=== PATIENT | male | born 1945 | race Caucasian/White ===

== ENCOUNTER → 2018-01-20 | Outpatient (CLI) | payer MEDICARE, OTHER ==
[~2018-01-20] MED LIST: ACHD5005 PO; AMOX500C2 PO; ASCO500C14 PO; ASP325T PO; ASPI-892; BUDE6HFA IH; BUDE90AE2 IH; CALC-732 PO; CARV6.25 PO; CHOL10003 PO; CLOP75TA; COD LIVER OIL; COD500OI3 PO; COLC0.6T53 PO; DEPO TESTOSTERONE IM; E400C PO; FLUT16SP22 NS; GINK60CA13; GUAI100S PO; IRB150T PO; LORA10TA7 PO; METO50TA7; MTF500T PO; MULT-608 PO; OMG1KC; OMG1KC PO; SAW160CA9 PO; SMV20T PO; TADA20TA PO; ULTIMATE FLORA PO; VENL150C PO; VENL150C53 PO; VITA1TAB; VNL75CCR PO; [UNRECOGNIZED DRUG - CODE] PO; [UNRECOGNIZED DRUG - OTHER] PO
== END ==
LOC: CARD 09:21
PROVIDERS: ATTEND Internal Medicine Cardiovascular Disease
DX: I25.10 Atherosclerotic heart disease of native coronary artery without angina pectoris (principal); I65.23 Occlusion and stenosis of bilateral carotid arteries; I10 Essential (primary) hypertension; E78.2 Mixed hyperlipidemia; R06.02 Shortness of breath; R07.89 Other chest pain
CPT/HCPCS: 93306

== ENCOUNTER → 2018-01-22 | Outpatient (CLI) | payer MEDICARE, OTHER ==
[~2018-01-22] VITALS: Ht 177.8 cm; Wt 92.5 kg
[~2018-01-22] MED LIST changes: +CATHETER FLUSH 10 ML SYR IV PRN
[2018-01-22 09:39] VITALS: BP 163/84
--- NOTE | 2018-01-22 17:37 | STRESS TEST ---
DATE OF SERVICE: 01/22/2018 EXERCISE MYOVIEW STRESS TEST REPORT REFERRING PHYSICIAN: Raquel Madrid DO. Baseline heart rate is 70. Baseline blood pressure 146/87. Baseline EKG, sinus rhythm with no ischemic changes. In summary, the patient was injected with 10.84 mCi of technetium-99 Myoview and the resting images were obtained. Then, the patient started exercising with a baseline heart rate, blood pressure and EKG mentioned above. The patient was able to exercise for 6 minutes on standard Aubrey protocol, achieving maximum heart rate of 139, which is 95% of maximum expected heart rate. With peak exercise level, EKG was showing nondiagnostic changes in II, III, aVF, V4 and V5. During recovery, heart rate and blood pressure returned to baseline. EKG returned to baseline. Next, blood pressure at peak was 199/84. The resting and stress images were reviewed and compared in the short axis, horizontal long axis, and vertical long axis views. Review of the images showed diaphragmatic attenuation. There is a fixed defect involving the mid to apical inferior wall, inferolateral and anterolateral wall with mild ischemia. SSS is 17. SDS 3. TID value 1.02. On the gated images, the left ventricle is normal in size with diffuse left ventricular hypokinesia, calculated ejection fraction 36%. CONCLUSION: 1. Fair exercise tolerance, a total of 6 minutes on standard Aubrey protocol, total of 7.1 METS achieving 95% of maximum expected heart rate. 2. Hypertensive response to exercise, returned to baseline during recovery. 3. Nondiagnostic EKG changes with exercise, returned to baseline during recovery. 4. Fixed defect involving the basal to mid inferior wall, the whole inferolateral and anterolateral wall with mild reversibility. 5. Normal left ventricular size with diffuse left ventricular hypokinesia, calculated ejection fraction 36%. Job ID: [id number] DocumentID: [id number] Dictated Date: 01/22/2018 14:15:22 Grape Picker Date: 01/22/2018 17:37:26 Dictated By: ANGIE DOWNEY MD
== END ==
LOC: CARD 07:05
PROVIDERS: ATTEND Internal Medicine Cardiovascular Disease
DX: I25.10 Atherosclerotic heart disease of native coronary artery without angina pectoris (principal); R07.89 Other chest pain; I10 Essential (primary) hypertension; E78.2 Mixed hyperlipidemia; R06.02 Shortness of breath
CPT/HCPCS: 78452; 93017

== ENCOUNTER 2018-02-12 08:46 | Day surgery (SDC) | payer MEDICARE, OTHER ==
[~2018-02-12] VITALS: Ht 175.3 cm; Wt 88.9 kg
[2018-02-12] VITALS (13 sets, daily range): BP systolic 143–174; BP diastolic 68–90
[~2018-02-12 08:46] MED LIST changes: -CATHETER FLUSH 10 ML SYR IV PRN
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
--- OUTSIDE RECORDS SUMMARY | 2018-02-12 08:50 | XMS REPORT ---
Author Author DERRICK NOEL Organization [employer] Address Unknown Phone Unavailable Care Team Providers Care City Superintendent Of Schools Name Role Phone DERRICK NOEL CP Unavailable Allergies No Known Allergies Problems Problem Type Condition Code Onset Dates Condition Status Problem Other specified dermatoses 702.8 Active Problem Polyuria 788.42 Active Problem Unspecified subjective visual disturbance 368.10 Active Problem Gout, unspecified 274.9 Active Problem Chronic airway obstruction, not elsewhere classified 496 Active Problem Simple or unspecified chronic serous otitis media 381.10 Active Problem Pneumonia, organism unspecified 486 Active Problem Dysfunction of Eustachian tube 381.81 Active Problem Acute upper respiratory infections of unspecified site 465.9 Active Problem Head injury, unspecified 959.01 Active Problem Need for prophylactic vaccination and inoculation, Influenza V04.81 Active Problem Acute bronchitis 466.0 Active Problem Wheezing 786.07 Active Problem Cough 786.2 Active Medications No Known Medications Results No Known Results Summary Purpose [employer] Submission
--- OUTSIDE RECORDS SUMMARY | 2018-02-12 08:50 | XMS REPORT ---
Author STANLEY Sierra Organization [employer] Address Unknown Phone Unavailable Care Team Providers Care Extrusion Manager Name Role Phone STANLEY SAUCEDO CP Unavailable Allergies, Adverse Reactions, Alerts Substance Reaction Event Type Levaquin Info Not Available Drug Allergy Problems Problem Type Condition Code Onset Dates Condition Status Assessment Recurrent major depressive disorder, in partial remission F33.41 Active Assessment Type 2 diabetes mellitus without complication, without long-term current use of insulin E11.9 Active Assessment Anxiety F41.9 Active Problem Anxiety F41.9 Active Problem Recurrent major depressive disorder, in partial remission F33.41 Active Problem Type 2 diabetes mellitus without complication, without long-term current use of insulin E11.9 Active Problem Hyperlipidemia, unspecified hyperlipidemia type E78.5 Active Assessment Left leg swelling M79.89 Active Problem Coronary artery disease involving [place] coronary artery of [place] heart without angina pectoris I25.10 Active Problem Essential hypertension I10 Active Assessment Hyperlipidemia, unspecified hyperlipidemia type E78.5 Active Assessment Essential hypertension I10 Active Assessment Abnormal lung sounds R09.89 Active Assessment Coronary artery disease involving [place] coronary artery of [place] heart without angina pectoris I25.10 Active Medications Medication Code System Code Instructions Start Date End Date Status Dosage Carvedilol [facility] 75644065470 6.25 MG Orally 2 times a day-MUST BE SEEN FOR REFILLS TAKE ONE TABLET BY MOUTH TWICE DAILY Effexor XR [facility] 95308287545 150 MG Orally Once a day- MUST BE SEEN FOR REFILLS 1 capsule with food Clindamycin HCl [facility] [address]-63 300 MG Orally every 8 hrs Aug 21, 2016 Aug 26, 2016 1 capsule ProAir HFA [facility] [address]-84 108 (90 Base) MCG/ACT Inhalation every 4 hrs, prn wheezing April 20, 2016 2 puffs as needed Simvastatin [facility] [address]-84 20 mg Orally Once a day- MUST BE SEEN FOR REFILLS TAKE ONE TABLET BY MOUTH DAILY Metformin HCl [facility] 82499977317 500 MG Orally 2 times a day-MUST BE SEEN FOR REFILLS. TAKE ONE TABLET BY MOUTH TWICE DAILY WITH MEALS Avapro [facility] 29956730317 150 MG Orally Once a day- MUST BE SEEN FOR REFILLS TAKE ONE TABLET BY MOUTH DAILY Procedures Procedure Coding System Code Date CHEST X-RAY CPT-4 66661 Aug 21, 2016 [facility] VISIT ESTABLISHED PATIENT CPT-4 G0467 Aug 21, 2016 X-RAY EXAM OF LOWER LEG CPT-4 18266 Aug 21, 2016 Office Visit, Est Pt., Level 4 CPT-4 31536 Aug 21, 2016 Vital Signs Date/Time: Aug 21, 2016 Cardiac Monitoring Heart Rate 72 bpm Weight 209.7 lbs Height 68 in BMI 31.88 Index Blood Pressure Diastolic 76 mmHg Blood Pressure Systolic 138 mmHg Results No Known Results Summary Purpose [employer] Submission
--- OUTSIDE RECORDS SUMMARY | 2018-02-12 08:50 | XMS REPORT ---
Author Author ROGELIO Martin Organization [facility] Address Unknown Care Team Providers Care Printing Equipment Mechanic Name Role Phone taanROGELIO Ashby Unavailable PROBLEMS Type Condition ICD9-CM Code [id number] Code Onset Dates Condition Status SNOMED Code Problem Recurrent major depressive disorder, in partial remission F33.41 Active 59884157 Problem Type 2 diabetes mellitus without complication, without long-term current use of insulin E11.9 Active 676994792 Problem Hyperlipidemia, unspecified hyperlipidemia type E78.5 Active 31109847 Problem Atherosclerosis of [place] coronary artery of [place] heart without angina pectoris I25.10 Active 545397778964960 Problem Exertional shortness of breath R06.02 Active 025567759 Problem Essential hypertension I10 Active 37087738 Problem Coronary artery disease involving [place] coronary artery of [place] heart without angina pectoris I25.10 Active 9349094686543 Problem COPD exacerbation J44.1 Active 640414989 Problem Anxiety F41.9 Active 97263448 ALLERGIES Substance Reaction Event Type Date Status Levaquin Unknown Drug Allergy Dec, Active SOCIAL HISTORY Never Assessed PLAN OF CARE Activity Details Follow Up 1 Week Reason:#27-te and #31-te per VITAL SIGNS Height 68 in 2016-12-18 Blood pressure systolic 89 mmHg 2016-12-18 Blood pressure diastolic 40 mmHg 2016-12-18 MEDICATIONS Medication Instructions Dosage Frequency Start Date End Date Duration Status Vitamin D3 400 UNIT Orally Once a day 2 tablets 24h Active Simvastatin 20 mg 1 tablet in the evening 24h Active Metformin HCl 500 MG Orally Twice a day 1 tablet with meals 12h Active Amoxicillin 500 MG Orally Four times a day 1 capsule 6h Dec, Dec, 7 days Active Loratadine Allergy Relief 10 MG Orally Once a day 1 tablet on the tongue and allow to dissolve 24h Active Zinc 100 MG Orally Once a day 1 tablet 24h Active Coreg 6.25 MG 1 tablet 12h Jan, Active Vitamin C 100 MG Orally Once a day 1 tablet 24h Active Aspirin 162.5 MG Orally Once a day 1 capsule 24h Active Calcium 1 tab Active Avapro 150 MG Orally Once a day 1 tablet 24h Active Effexor Active Magnesium 100 MG Orally Four times a day 1 capsule with food 6h Active RESULTS No Results PROCEDURES Procedure Date Ordered Result Body Site LTD ORAL EVALUATION - PROBLEM FOCUS Dec 18, 2016 INTRAORL-PERIAPICAL 1 FILM 88430 Dec 18, 2016 INTRAORL-PERIAPICAL EA ADD FILM Dec 18, 2016 IMMUNIZATIONS No Known Immunizations MEDICAL (GENERAL) HISTORY [...]
--- OUTSIDE RECORDS SUMMARY | 2018-02-12 08:50 | XMS REPORT ---
Author Author HELADIO CASTRO [facility] Address [address] [place] [address] Care Team Providers Care Air Pollution Control Engineer Name Role Phone HELADIO CASTRO Unavailable PROBLEMS Type Condition ICD9-CM Code [id number] Code Onset Dates Condition Status SNOMED Code Problem Recurrent major depressive disorder, in partial remission F33.41 Active 42211214 Problem Type 2 diabetes mellitus without complication, without long-term current use of insulin E11.9 Active 887893694 Problem Hyperlipidemia, unspecified hyperlipidemia type E78.5 Active 08758110 Problem Atherosclerosis of [place] coronary artery of [place] heart without angina pectoris I25.10 Active 940634524113604 Problem Exertional shortness of breath R06.02 Active 152718656 Problem Essential hypertension I10 Active 47070885 Problem Coronary artery disease involving [place] coronary artery of [place] heart without angina pectoris I25.10 Active 8597921370077 Problem COPD exacerbation J44.1 Active 800931795 Problem Anxiety F41.9 Active 41215943 ALLERGIES Substance Reaction Event Type Date Status Levaquin Unknown Drug Allergy Jan, Active SOCIAL HISTORY Never Assessed PLAN OF CARE Activity Details Follow Up prn Reason: VITAL SIGNS Height 68 in 2017-01-14 Weight 209.0 lbs 2017-01-14 Temperature 97.7 degrees Fahrenheit 2017-01-14 Heart Rate 70 bpm 2017-01-14 Respiratory Rate 24 2017-01-14 Oximetry on room air: 94 % 2017-01-14 BMI 31.77 kg/m2 2017-01-14 Blood pressure systolic 142 mmHg 2017-01-14 Blood pressure diastolic 80 mmHg 2017-01-14 MEDICATIONS Medication Instructions Dosage Frequency Start Date End Date Duration Status Vitamin C 100 MG Orally Once a day 1 tablet 24h Active ProAir HFA 108 (90 Base) MCG/ACT Inhalation every 4 hrs 2 puffs as needed 4h Jan, 5 days Active Magnesium 100 MG Orally Four times a day 1 capsule with food 6h Active Vitamin D3 400 UNIT Orally Once a day 2 tablets 24h Active Benzonatate 200 MG Orally Three times a day 1 capsule 8h Jan, Jan, 5 days Active Metformin HCl 500 MG Orally Twice a day 1 tablet with meals 12h Active Avapro 150 MG Orally Once a day 1 tablet 24h Active Calcium 1 tab Active Simvastatin 20 mg 1 tablet in the evening 24h Active Azithromycin 250 MG Orally Once a day 2 tablets on the first day, then 1 tablet daily for 4 days 24h Jan, Jan, 5 day(s) Active Effexor Active Zinc 100 MG Orally Once a day 1 tablet 24h Active Aspirin 162.5 MG Orally Once a day 1 capsule 24h Active Loratadine Allergy Relief 10 MG Orally Once a day 1 tablet on the tongue and allow to dissolve 24h Active Coreg 6.25 MG 1 tablet 12h Jan, Active RESULTS Name Result Date Reference Range Xray : Chest (IN HOUSE) 2017-01-14 PROCEDURES Procedure Date Ordered Result Body Site ALBUTEROL UNIT DOSE FORM INHALED 2017-01-14 N/A MEASURE BLOOD OXYGEN LEVEL January 14, 2017 ALBUTEROL INHAL UNIT DOSE 1 MG January 14, 2017 CHEST X-RAY January 14, 2017 [facility] VISIT ESTABLISHED PATIENT January 14, 2017 IMMUNIZATIONS No Known Immunizations MEDICAL (GENERAL) [...]
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
--- OUTSIDE RECORDS SUMMARY | 2018-02-12 08:50 | XMS REPORT ---
Author Author REGINO DIAZ [facility] Address [address] [place] [address] Care Team Providers Care Detective Bureau Chief Name Role Phone REGINO DIAZ Unavailable PROBLEMS Type Condition ICD9-CM Code XXP43-NH Code Onset Dates Condition Status SNOMED Code Problem Recurrent major depressive disorder, in partial remission F33.41 Active 69035707 Problem Type 2 diabetes mellitus without complication, without long-term current use of insulin E11.9 Active 876991805 Problem Hyperlipidemia, unspecified hyperlipidemia type E78.5 Active 06231377 Problem Atherosclerosis of [place] coronary artery of [place] heart without angina pectoris I25.10 Active 491755598927371 Problem Exertional shortness of breath R06.02 Active 531494556 Problem Essential hypertension I10 Active 90856019 Problem Coronary artery disease involving [place] coronary artery of [place] heart without angina pectoris I25.10 Active 2030244428820 Problem COPD exacerbation J44.1 Active 393251957 Problem Anxiety F41.9 Active 39689168 ALLERGIES No Information SOCIAL HISTORY Never Assessed PLAN OF CARE VITAL SIGNS MEDICATIONS No Known Medications RESULTS No Results PROCEDURES No Known [...]
--- OUTSIDE RECORDS SUMMARY | 2018-02-12 08:50 | XMS REPORT ---
Author DERRICK Jaquez [facility] eClinicalWorks Address Unknown Phone Unavailable Care Team Providers Care Local Sales Manager Name Role Phone DERRICK NOEL CP Unavailable Allergies, Adverse Reactions, Alerts Substance Reaction Event Type Levaquin Info Not Available Drug Allergy Problems Problem Type Condition Code Onset Dates Condition Status Assessment Essential hypertension I10 Active Assessment Actinic keratosis L57.0 Active Assessment Cutaneous horn L85.8 Active Assessment Encounter for immunization Z23 Active Assessment Hyperlipidemia, unspecified hyperlipidemia type E78.5 Active Problem Anxiety F41.9 Active Problem Recurrent major depressive disorder, in partial remission F33.41 Active Problem Type 2 diabetes mellitus without complication, without long-term current use of insulin E11.9 Active Problem Hyperlipidemia, unspecified hyperlipidemia type E78.5 Active Assessment Fatigue, unspecified type R53.83 Active Problem Coronary artery disease involving [place] coronary artery of [place] heart without angina pectoris I25.10 Active Problem Essential hypertension I10 Active Medications Medication Code System Code Instructions Start Date End Date Status Dosage Carvedilol [facility] 57068826478 6.25 MG TAKE ONE TABLET BY MOUTH TWICE DAILY Avapro [facility] 75496102105 150 MG Orally Once a day [address] [facility] [address]-48 75 MG Orally Twice a day Sep 10, 2016 1 tablet with food Metformin HCl [facility] 50515551189 500 MG Orally Twice a day 1 tablet with meals Simvastatin [facility] [address]-70 20 mg Once a day 1 tablet in the evening Coreg [facility] [address]-03 6.25 MG 2 times a day January 22, 2014 1 tablet Procedures Procedure Coding System Code Date [facility] VISIT ESTABLISHED PATIENT CPT-4 G0467 Sep 10, 2016 Office Visit, Est Pt., Level 3 CPT-4 63807 Sep 10, 2016 CRYOTHERAPY OF SKIN CPT-4 38782 Sep 10, 2016 VENIPUNCT, ROUTINE* CPT-4 98176 Sep 10, 2016 [facility] C[facility]-4 NOBLL Sep 10, 2016 SINGLE IMMUNIZATION ADMIN CPT-4 89942 Sep 10, 2016 FLUZONE HIGH DOSE 65 AND UP 2016 CPT-4 99284 Sep 10, 2016 Vital Signs Date/Time: Sep 10, 2016 Cardiac Monitoring Heart Rate 68 bpm Weight 211 lbs Height 68 in BMI 32.08 Index Blood Pressure Diastolic 80 mmHg Blood Pressure Systolic 140 mmHg Results Name Result Date Reference Range Unit Abnormality Flag CBC ----Lymphs 33 20160910 % ----Neutrophils 54 45850021 % ----Baso (Absolute) 0.0 13457846 0.0-0.2 x10E3/uL ----Hemoglobin 15.0 99871739 12.6-17.7 g/dL ----Eos (Absolute) 0.2 38334554 0.0-0.4 x10E3/uL ----Hematocrit 45.7 58626899 37.5-51.0 % ----Monocytes(Absolute) 0.6 61619669 0.1-0.9 x10E3/uL ----MCV 90 48483110 79-97 fL ----Lymphs (Absolute) 2.2 38861365 0.7-3.1 x10E3/uL ----MCH 29.5 57391771 26.6-33.0 pg ----Neutrophils (Absolute) 3.8 33473974 1.4-7.0 x10E3/uL ----MCHC 32.8 00430481 31.5-35.7 g/dL ----Immature Granulocytes 0 76645924 % ----Basos 1 20160910 % ----RDW 13.8 23387201 12.3-15.4 % ----Immature Grans (Abs) 0.0 09584453 0.0-0.1 x10E3/uL ----WBC 6.9 07284986 3.4-10.8 x10E3/uL ----Platelets 209 31707732 150-379 x10E3/uL ----Eos 3 20160910 % ----RBC 5.08 84497824 4.14-5.80 x10E6/uL ----Monocytes 9 96154529 % LIPID PANEL ----LDL Cholesterol Calc 43 00334239 0-99 mg/dL ----VLDL Cholesterol [place] 28 20160910 5-40 mg/dL ----Cholesterol, Total 107 39686237 100-199 mg/dL ----HDL Cholesterol 36 20160910 >39 mg/dL L ----Triglycerides 142 20160910 0-149 mg/dL ROUTINE VENIPUNCTURE TSH ----TSH 2.340 20160910 0.450-4.500 uIU/mL CMP ----Potassium, Serum 4.7 20160910 3.5-5.2 mmol/L ----Sodium, Serum 143 90512396 136-144 mmol/L ----BUN/Creatinine Ratio 18 20160910 10-22 ----eGFR If Africn Am 105 86371154 >59 mL/min/1.73 ----eGFR If NonAfricn Am 91 00373314 >59 mL/min/1.73 ----Creatinine, Serum 0.77 20160910 0.76-1.27 mg/dL ----BUN 14 20160910 8-27 mg/dL ----Glucose, Serum 104 20160910 65-99 mg/dL H ----AST (SGOT) 22 20160910 0-40 IU/L ----Globulin, Total 2.4 76313015 1.5-4.5 g/dL ----ALT (SGPT) 24 20160910 0-44 IU/L ----A/G Ratio 1.8 20160910 1.1-2.5 ----Bilirubin, Total 0.5 20160910 0.0-1.2 mg/dL ----Alkaline Phosphatase, S 92 20160910 39-117 IU/L ----Carbon Dioxide, Total 25 20160910 18-29 mmol/L ----Calcium, Serum 9.3 20160910 8.6-10.2 mg/dL ----Protein, Total, Serum 6.7 20160910 6.0-8.5 g/dL ----Albumin, Serum 4.3 20160910 3.5-4.8 g/dL ----Chloride, Serum 100 53693141 97-106 mmol/L CRYOTHERAPY OF SKIN Immunizations Vaccine Administration Date FLUZONE HIGH DOSE 65 AND UP 2015Sep 10, 2016 Summary Purpose eClinicalWorks Submission
--- OUTSIDE RECORDS SUMMARY | 2018-02-12 08:50 | XMS REPORT ---
Author Author ROGELIO Martin Organization [facility] Address Unknown Care Team Providers Care Fagot Heater Name Role Phone tanaSymone ROGELIO Unavailable PROBLEMS Type Condition ICD9-CM Code RNR54-WU Code Onset Dates Condition Status SNOMED Code Problem Recurrent major depressive disorder, in partial remission F33.41 Active 79445294 Problem Type 2 diabetes mellitus without complication, without long-term current use of insulin E11.9 Active 122223130 Problem Hyperlipidemia, unspecified hyperlipidemia type E78.5 Active 25295563 Problem Atherosclerosis of [place] coronary artery of [place] heart without angina pectoris I25.10 Active 214306600068426 Problem Exertional shortness of breath R06.02 Active 505146278 Problem Essential hypertension I10 Active 19981101 Problem Coronary artery disease involving [place] coronary artery of [place] heart without angina pectoris I25.10 Active 1364874328868 Problem COPD exacerbation J44.1 Active 114731273 Problem Anxiety F41.9 Active 11348801 ALLERGIES Substance Reaction Event Type Date Status Levaquin Unknown Drug Allergy Dec, Active SOCIAL HISTORY Never Assessed PLAN OF CARE Activity Details Follow Up prn Reason:[place]/hygiene VITAL SIGNS Height 68 in 2017-01-02 Blood pressure systolic 150 mmHg 2017-01-02 Blood pressure diastolic 82 mmHg 2017-01-02 MEDICATIONS Medication Instructions Dosage Frequency Start Date End Date Duration Status Effexor Active Aspirin 162.5 MG Orally Once a day 1 capsule 24h Active Loratadine Allergy Relief 10 MG Orally Once a day 1 tablet on the tongue and allow to dissolve 24h Active Coreg 6.25 MG 1 tablet 12h 14 Jan, 2014 Active Zinc 100 MG Orally Once a day 1 tablet 24h Active Avapro 150 MG Orally Once a day 1 tablet 24h Active Simvastatin 20 mg 1 tablet in the evening 24h Active Vitamin C 100 MG Orally Once a day 1 tablet 24h Active Vitamin D3 400 UNIT Orally Once a day 2 tablets 24h Active Metformin HCl 500 MG Orally Twice a day 1 tablet with meals 12h Active Calcium 1 tab Active Magnesium 100 MG Orally Four times a day 1 capsule with food 6h Active RESULTS No Results PROCEDURES Procedure Date Ordered Result Body Site EXTRAC ERUPTED TOOTH/EXPOSED ROOT Jan 02, 2017 EXTRAC ERUPTED TOOTH/EXPOSED ROOT Jan 02, 2017 IMMUNIZATIONS No Known Immunizations MEDICAL (GENERAL) [...]
--- OUTSIDE RECORDS SUMMARY | 2018-02-12 08:50 | XMS REPORT ---
Author Author DERRICK NOEL Organization e[employer] Address Unknown Phone Unavailable Care Team Providers Care Sales Agent Insurance Name Role Phone DERRICK NOEL CP Unavailable Allergies, Adverse Reactions, Alerts Substance Reaction Event Type Levaquin Info Not Available Drug Allergy Problems Problem Type Condition Code Onset Dates Condition Status Assessment Coughing R05 Active Assessment Dizziness R42 Active Assessment Allergic rhinitis due to pollen J30.1 Active Medications Medication Code System Code Instructions Start Date End Date Status Dosage Simvastatin ND 14943344625 20 MG TAKE [place] [address]-93 6.25 mg 1 tab(s) orally 2 times a day January 22, 2014 take 1 tablet by Oral route 2 times per day Avapro [facility] [address]-87 150 mg January 22, 2014 1 tablet by Oral route 1 time [place] [address]-22 150 MG Orally Once a day Sep 16, 2015 1 capsule with food Loratadine [facility] [place] [address]-71 10 MG Once a day 1 capsule metformin NDC 0 500 mg 1 TAB orally once a day January 22, 2014 1 tablet by Oral route 2 times per day with meals Procedures Procedure Coding System Code Date Office Visit, Est Pt., Level 3 CPT-4 00460 Sep 16, 2015 LAB NOT BILLED BY [facility] CPT-4 NOBLL Sep 16, 2015 [facility] VISIT ESTABLISHED PATIENT CPT-4 G0467 Sep 16, 2015 VENIPUNCT, ROUTINE* CPT-4 22628 Sep 16, 2015 Vital Signs Date/Time: Sep 16, 2015 Temperature 97.0 F Weight 205.3 lbs Height 68 in BMI 31.21 Index Blood Pressure Diastolic 88 mmHg Blood Pressure Systolic 174 mmHg Cardiac Monitoring Heart Rate 68 bpm Results Name Result Date Reference Range Unit Abnormality Flag ROUTINE VENIPUNCTURE Summary Purpose eClinicalWorks Submission
--- OUTSIDE RECORDS SUMMARY | 2018-02-12 08:51 | XMS REPORT ---
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 Active 0205311448703 Problem Atherosclerosis of ani[place] coronary artery of [place] heart without angina pectoris I25.10 Active [id number] Problem Exertional shortness of breath R06.02 Active 681192455 Problem Recurrent major depressive disorder, in partial remission F33.41 Active 37468412 Problem Anxiety F41.9 Active 88311371 Problem Type 2 diabetes mellitus without complication, without long-term current use of insulin E11.9 Active 102367644 Problem Hyperlipidemia, unspecified hyperlipidemia type E78.5 Active 79949176 ALLERGIES No Information ENCOUNTERS Encounter Location Date Diagnosis [place] [address] [id number] [place] [address]- 5629 Feb, [place] [address] [address] Oct, Essential hypertension I10 ; Type 2 diabetes mellitus without complication, without long-term current use of insulin E11.9 ; Coronary artery disease involving [place]iak coronary artery of [place] heart without angina pectoris I25.10 ; Hyperlipidemia, unspecified hyperlipidemia type E78.5 and Anxiety F41.9 [place] [address] [address] 30 Sep, 2017 Skin lesion of left arm L98.9 ; Skin lesion of left ear L98.9 and Encounter for immunization Z23 [place] [address] [address]- [address] Sep, [place] [address] [id number] [place] [address] 34602- 0323 Aug, Left hip pain M25.552 ; Acute pain of left knee M25.562 and Lentigo L81.4 [facility] [id number] [place] [address]32 -0297 08 Jul, 2017 Wheezing R06.2 and Bronchitis J40 [place] [address] 28[address]- 0248 May, [place] [address] [address]- [address]77 May, Type 2 diabetes mellitus without complication, without long- term current use of insulin E11.9 [place] [id number] [place] [address] 34789- 4306 Apr, [place] [address] 24[address]- 7948 March, Carotid stenosis, bilateral I65.23 ; Chest wall pain R07.89 ; Exertional shortness of breath R06.02 and Shortness of breath on exertion R06.02 [place] [id number] [place] [address] 30874- 9127 March, [place] [id number] [place] [address] 57274- 0281 March, [place] [id number] [place] [address] 69630- 5325 Feb, [place] [id number] [place] [address] 76117- 5989 Feb, Essential hypertension I10 ; Type 2 diabetes mellitus without complication, without long-term current use of insulin E11.9 ; Coronary artery disease involving aniak coronary artery of aniak heart without angina pectoris I25.10 and Hyperlipidemia, unspecified hyperlipidemia type E78.5 [facility] [id number] [place] [address]672 -6151 Feb, Cellulitis of knee, left L03.[address] [address]- [address]78 Feb, [facility] [address] [address] Jan, Wheezing R06.2 and COPD exacerbation J44.1 [facility] [address] [address] Jan, Bronchitis J40 [facility] IN [address] [address] -[address] 06 Jan, 2017 Cough R05 and Community acquired pneumonia J18.9 [facility] [address] [id number] Dec, Dental caries K02.9 [facility] [address] [id number] Dec, Dental examination Z01.[address] 8[address]- 2253 Aug, Fatigue, unspecified type R53.83 ; Actinic keratosis L57.0 ; Cutaneous horn L85.8 ; Essential hypertension I10 ; Hyperlipidemia, unspecified hyperlipidemia type E78.5 and Encounter for immunization Z23 [address] [address]- 1007 Aug, Left leg swelling M79.89 ; Type 2 diabetes mellitus without complication, without long-term current use of insulin E11.9 ; Anxiety F41.9 ; Recurrent major depressive disorder, in partial remission F33.41 ; Coronary artery disease involving aniak coronary artery of aniak heart without angina pectoris I25.10 ; Abnormal lung sounds R09.89 ; Essential hypertension I10 and Hyperlipidemia, unspecified hyperlipidemia type E78.5 [place] [id number] [place] [address] 61933- 0099 16 Apr, 2016 Acute bronchitis, unspecified organism J20.[address] 90290- 6233 Apr, Bronchitis J40 [facility] [address] [address] 5408 Sep, Allergic rhinitis due to pollen J30.1 ; Coughing R05 and Dizziness R42 [facility] [address] [address]- 9365 Sep, [facility] [id number] [place] [address] 22569- 9999 Feb, [facility] [address] [address]- 2742 Feb, [facility] [id number] [place] [address] 22030- 9017 Jan, [facility] [address] [address]- 0731 Jan, [facility] [id number] [place] [address] 14098- 0394 Jan, [facility] [address] [address]- 5232 Jan, [facility] [address] [place] [address]- 2708 Dec, [facility] [address] [place] [address]- 5579 Dec, [facility] [address] [address]- 7780 Dec, [facility] [address] [address]- 6433 Dec, [facility] [address] [place] [address]- 1272 Dec, [facility] [address] [address]- 4285 Dec, [facility] [address] [place] [address]- 2168 Dec, [facility] [address] [id number] [place] [address]- 3926 Dec, [facility] [place] [facility] [address] [id number] [place] [address]- 9757 Nov, [facility] [address] [id number] [place] [address]- 9021 Nov, [facility] [place] [facility] [address] [id number] [place] [address]- 3911 Nov, [facility] [address] [id number] [place] [address]- 1882 Nov, [facility] [address] [facility] [id number] [place] [address]- 0183 Nov, [facility] [address] [facility] [id number] [place] [address]- 0036 Nov, [facility] [address] [id number] [place] [address]- 5023 Oct, [facility] [address] [id number] [place] [address]- 8022 Oct, [facility] [address] [facility] [id number] [place] [address]- 3889 Oct, [facility] [place] [facility] [address] [id number] [place] [address]- 3350 Oct, [facility] [place] [facility] [address] [id number] [place] [address]- 1826 Oct, [facility] [place] [facility] [address] [id number] [place] [address]- 1533 Oct, [facility] [place] [facility] [address] [facility] [id number] [place] [address]- 2715 Sep, [facility] [place] [facility] [address] [facility] [id number] [place] [address]- 1466 Sep, [facility] [place] [facility] [address] [id number] [place] [address]- 7157 Jul, [facility] [place] [facility] [address] [id number] [place] [address]- 8286 Jul, [facility] [place] [facility] [address] [id number] [place] 9453 Jul, [facility] [place] [facility] [address] [id number] [place] [address]- 1608 Jul, [facility] [place] [facility] [address] [id number] [place] [address]- 3366 Jun, [facility] [place] [facility] [address] [id number] [place] [address]- 5940 Jun, [facility] [place] [facility] [address] [id number] [place] [address]- 2085 Jun, [facility] [place] [facility] [address] [id number] [place] [address]- 4846 Jun, [facility] [place] [facility] [address] [id number] [place] [address]- 0097 Jun, [facility] [place] [facility] [address] [id number] [place] [address]- 3663 Jun, [facility] [place] [facility] [address] [id number] [place] [address]- 3370 May, [facility] [place] [facility] [address] [id number] [place] [address]- 1900 May, [facility] [place] [facility] [address] [id number] [place] [address]- 4333 May, [facility] [place] [facility] [address] [id number] [place] [address]- 6121 May, [facility] [place] [facility] [address] [id number] [place] [address]- 7892 May, [facility] [place] [facility] [address] [id number] [place] [address]- 6353 May, [facility] [place] [facility] [address] [id number] [place] [address]- 5775 May, [facility] [place] [facility] [address] [id number] [place] [address]- 2385 May, [facility] [place] [facility] [address] [id number] [place] [address]- 1021 May, [facility] [place] [facility] [address] [id number] [place] [address]- 4602 May, [facility] [place] [facility] [address] [id number] [place] [address]- 9133 May, [facility] [place] [facility] [address] [id number] [place] [address]- 1401 May, [facility] [place] [facility] [address] [id number] [place] [address]- 7876 Jan, [facility] [place] [facility] [address] [id number] [place] [address]- 2649 14 Jan, 2014 [facility] [place] [facility] [address] [id number] [place] [address]- 1785 13 Jan, 2014 [facility] [place] [facility] [address] [id number] [place] [address]- 1830 Jan, [facility] [place] [facility] [address] [id number] [place] [address]- 5507 Jan, [facility] [place] [facility] [address] [id number] [place] [address]- 3083 10 Jan, 2014 [facility] [place] [facility] [address] [id number] [place] [address]- 2574 10 Jan, 2014 [facility] [place] [facility] [address] [id number] [place] [address]- 0367 15 Dec, 2013 [facility] [place] [facility] [address] [id number] [place] [address]- 6544 15 Dec, 2013 [facility] [place] [facility] [address] [id number] [place] [address]- 8252 07 Dec, 2013 [facility] [place] [facility] [address] [id number] [place] [address]- 1704 Dec, [facility] [place] [facility] [address] [id number] [place] [address]- 7528 Dec, [facility] [place] [facility] [address] [id number] [place] [address]- 7603 Dec, [facility] [place] [facility] [address] [id number] [place] [address]- 8894 Nov, [facility] [place] [facility] [address] [id number] [place] [address]- 1590 Nov, [facility] [place] [facility] [address] [id number] [place] [address]- 1680 Nov, [facility] [place] [facility] [address] [id number] [place] [address]- 0006 Nov, [facility] [place] [facility] [address] [id number] [place] [address]- 6877 Sep, [facility] [place] [facility] [address] [id number] [place] [address]- 5478 Sep, [facility] [place] [facility] [address] [id number] [place] [address]- 2769 Aug, [facility] [place] [facility] [address] [id number] [address]- 2990 Aug, [facility] [place] [facility] [address] [id number] [place] [address]- 5671 Aug, [facility] [place] [facility] [address] [id number] [place] [address]- 0599 Aug, [facility] [place] [facility] [address] [id number] [place] [address]- 2292 Aug, [facility] [place] [facility] [address] [id number] [address]- 4280 Aug, [facility] [address] [id number] [place] [address]- 2135 Jun, [facility] [place] [facility] [address] [id number] [place] [address]- 8482 Jun, [facility] [address] [id number] [place] [address]- 1846 May, [facility] [place] [facility] [address] [id number] [place] [address]- 9780 May, [facility] [address] [id number] [place] [address]- 9130 May, [facility] [address] [id number] [place] [address]- 7742 May, [facility] [address] [id number] [place] [address]- 8756 May, [facility] [address] [id number] [place] [address]- 1268 March, [facility] [address] [id number] [place] [address]- 2526 Feb, [facility] [place] [facility] [address] [id number] [place] [address]- 8929 Feb, [facility] [address] [id number] [place] [address]- 6685 Feb, [facility] [place] [facility] [address] [id number] [place] [address]- 5691 Dec, [facility] [place] [facility] [address] [id number] [place] [address]- 5886 Dec, [facility] [place] [facility] [address] [id number] [place] [address]- 1920 Sep, [facility] [place] [facility] [address] [id number] [place] [address]- 1962 Sep, [facility] [place] [facility] [address] [id number] [place] [address]- 7870 Sep, [facility] [place] [facility] [address] [id number] [place] [address]- 3122 Sep, [facility] [place] [facility] [address] [id number] [place] [address]- 6923 Aug, [facility] [place] [facility] [address] [id number] [place] [address]- 7349 Aug, [facility] [place] [facility] [address] [id number] [place] [address]- 1450 Aug, [facility] [place] [facility] [address] [id number] [place] [address]- 9726 Aug, [facility] [place] [facility] [address] [id number] [place] [address]- 5264 Aug, [facility] [place] [facility] [address] [id number] [place] [address]- 1379 Aug, [facility] [place] [facility] [address] [id number] [place] [address]- 7493 Aug, [facility] [place] [facility] [address] [id number] [place] [address]- 8813 Aug, [facility] [place] [facility] [address] [facility] [id number] [place] 9523 Aug, [facility] [place] [facility] [address] [id number] [place] [address]- 9456 Aug, [facility] [place] [facility] [address] [id number] [place] [address]- 9951 Aug, [facility] [place] [facility] [address] [id number] [place] [address]- 3066 Jul, [facility] [place] [facility] [address] [id number] [place] [address]- 6316 Jul, [facility] [place] [facility] [address] [id number] [place] [address]- 7966 Jun, [facility] [place] [facility] [address] [id number] [place] [address]- 2696 Jun, [facility] [place] [facility] [address] [id number] [place] [address]- 8967 May, [facility] [place] [facility] [address] [id number] [place] [address]- 4585 Apr, [facility] [place] [facility] [address] [id number] [place] [address]- 9951 Apr, [facility] [place] [facility] [address] [id number] [place] [address]- 8527 March, [facility] [place] [facility] [address] [id number] [place] [address]- 3017 March, [facility] [place] [facility] [address] [id number] [place] [address]- 9225 March, [facility] [place] [facility] [address] [id number] [place] [address]- 9527 March, [facility] [place] [facility] [address] [id number] [place] [address]- 0748 March, [facility] [place] [facility] [address] [id number] [place] [address]- 0645 Feb, [facility] [place] [facility] [address] [id number] [place] [address]- 7577 Feb, [facility] [place] [facility] [address] [id number] [place] [address]- 3626 Feb, [facility] [place] [facility] [address] [id number] [place] [address]- 3373 Jan, [facility] [place] [facility] [address] [id number] [place] [address]- 1964 Jan, [facility] [place] [facility] [address] [id number] [place] [address]- 1250 Dec, [facility] [place] [facility] [address] [id number] [place] [address]- 4097 16 Dec, 2011 [facility] [address] [id number] [place] [address]- 6192 14 Dec, 2011 [facility] [address] [id number] [place] [address]- 3612 Nov, [facility] [address] [id number] [place] [address]- 3469 Nov, [facility] [address] [id number] [place] [address]- 7613 30 Oct, 2011 [facility] [address] [id number] [place] [address]- 2171 27 Oct, 2011 [facility] [address] [id number] [place] [address]- 5657 Oct, [facility] [address] [facility] [id number] [place] [address]- 1624 29 Sep, 2011 [facility] [address] [id number] [place] [address]- 3561 Sep, [facility] [address] [facility] [id number] [place] [address]- 6772 Sep, [facility] [address] [facility] [id number] [place] [address]- 3400 Sep, [facility] [address] [id number] [place] [address]- 9708 Oct, [facility] [address] [id number] [place] [address]- 3623 Sep, [facility] [place] [facility] [address] [id number] [place] [address]- 2170 Sep, [facility] [place] [facility] [address] [id number] [place] [address]- 4762 28 Aug, 2010 [facility] [address] [id number] [place] [address]- 5905 Aug, [facility] [id number], [place] [address]- 4047 Aug, [facility] [address], [place] [address]- 4366 Aug, [facility] [id number], [place] [address]- 3368 Aug, [facility] [address], [place] [address]- 1384 May, [facility] [address] 7506 Jan, [facility] [address] 7582 Oct, [facility] [address], [place] [address]- 5530 Sep, [facility] [address], [place] [address]- 6742 Aug, [facility] [id number], [place] [address]- 6602 Dec, IMMUNIZATIONS No Known Immunizations SOCIAL HISTORY Never Assessed REASON FOR VISIT 1 mo f/u DM Ed PLAN OF CARE VITAL SIGNS MEDICATIONS Unknown Medications RESULTS No Results PROCEDURES No Known procedures INSTRUCTIONS MEDICATIONS ADMINISTERED No Known Medications MEDICAL (GENERAL) HISTORY Type Description Date Medical [...]
--- OUTSIDE RECORDS SUMMARY | 2018-02-12 08:53 | XMS REPORT | Continuity of Care Document ---
Author Author [facility] Organization [facility] Address Unknown Phone Unavailable Allergies Active Description Code Type Severity Reaction Onset Reported/Identified Relationship to Patient Clinical Status Yes codeine [id number] Drug Allergy Unknown N/A 04/16/2006 Yes Levaquin Drug Allergy 03/01/2010 Yes Levaquin Drug Allergy N/A N/A 03/01/2010 Yes levofloxacin [id number] Drug Allergy Unknown N/A 06/15/2014 Medications There is no data. Problems Date Dx Coded Attending Type Code Diagnosis Diagnosed By 07/15/2008 MICHELLE DILLON DO 250.00 DIABETES MELLITUS 07/15/2008 MICHELLE DILLON DO 250.00 DIABETES MELLITUS 07/15/2008 250.00 DIABETES MELLITUS 07/15/2008 250.00 DIABETES MELLITUS 07/15/2008 250.00 DIABETES MELLITUS 07/15/2008 250.00 DIABETES MELLITUS 07/15/2008 MICHELLE DILLON DO 250.00 DIABETES MELLITUS 07/15/2008 MICHELLE DILLON DO 250.00 DIABETES MELLITUS 07/15/2008 MICHELLE DILLON DO 250.00 DIABETES MELLITUS 07/15/2008 MICHELLE DILLON DO 250.00 DIABETES MELLITUS 07/15/2008 DERRICK NOEL APRN 250.00 DIABETES MELLITUS 07/15/2008 DERRICK NOEL APRN 250.00 DIABETES MELLITUS 07/15/2008 DERRICK NOEL APRN 250.00 DIABETES MELLITUS 07/15/2008 DERRICK NOEL APRN 250.00 DIABETES MELLITUS 07/15/2008 MICHELLE DILLON DO 250.00 DIABETES MELLITUS 07/15/2008 KYAW WASHINGTON MD 250.00 DIABETES MELLITUS 07/15/2008 DERRICK NOEL APRN 250.00 DIABETES MELLITUS 07/15/2008 DERRICK NOEL APRN 250.00 DIABETES MELLITUS 07/15/2008 DERRICK NOEL APRN 250.00 DIABETES MELLITUS 07/15/2008 CHERI NORIEGA DDS 250.00 DIABETES MELLITUS 07/15/2008 [employer]K [employer]PORATE DIRECTOR OF HUMAN RESOURCES, OLIVERIO R 250.00 DIABETES MELLITUS 07/15/2008 NGHIA FUNK APRNIA R 250.00 DIABETES MELLITUS 07/15/2008 DERRICK NOEL APRN 250.00 DIABETES MELLITUS 07/15/2008 DILLON DO, MICHELLE K 250.00 DIABETES MELLITUS 07/15/2008 DERRICK NOEL APRN T 250.00 DIABETES MELLITUS 07/15/2008 DERRICK NOEL APRN T 250.00 DIABETES MELLITUS 07/15/2008 DERRICK NEOL APRN T 250.00 DIABETES MELLITUS 07/15/2008 DERRICK NOEL APRN T 250.00 DIABETES MELLITUS 11/03/2008 DILLON DO, MICHELLE K 401.1 ESSENTIAL HYPERTENSION BENIGN 11/03/2008 DILLON DO, MICHELLE K 401.1 ESSENTIAL HYPERTENSION BENIGN 11/03/2008 401.1 ESSENTIAL HYPERTENSION BENIGN 11/03/2008 401.1 ESSENTIAL HYPERTENSION BENIGN 11/03/2008 401.1 ESSENTIAL HYPERTENSION BENIGN 11/03/2008 401.1 ESSENTIAL HYPERTENSION BENIGN 11/03/2008 DILLON DO, MICHELLE K 401.1 ESSENTIAL HYPERTENSION BENIGN 11/03/2008 DILLON DO, MICHELLE K 401.1 ESSENTIAL HYPERTENSION BENIGN 11/03/2008 DILLON DO, MICHELLE K 401.1 ESSENTIAL HYPERTENSION BENIGN 11/03/2008 DILLON DO, MICHELLE K 401.1 ESSENTIAL HYPERTENSION BENIGN 11/03/2008 DERRICK NOEL APRN 401.1 ESSENTIAL HYPERTENSION BENIGN 11/03/2008 DERRICK NOEL APRN 401.1 ESSENTIAL HYPERTENSION BENIGN 11/03/2008 DERRICK NOEL APRN 401.1 ESSENTIAL HYPERTENSION BENIGN 11/03/2008 DERRICK NOEL APRN 401.1 ESSENTIAL HYPERTENSION BENIGN 11/03/2008 DILLON DO, MICHELLE K 401.1 ESSENTIAL HYPERTENSION BENIGN 11/03/2008 KYAW WASHINGTON MD 401.1 ESSENTIAL HYPERTENSION BENIGN 11/03/2008 DERRICK NOEL APRN 401.1 ESSENTIAL HYPERTENSION BENIGN 11/03/2008 DERRICK NOEL APRN 401.1 ESSENTIAL HYPERTENSION BENIGN 11/03/2008 DERRICK NOEL APRN 401.1 ESSENTIAL HYPERTENSION BENIGN 11/03/2008 CHERI NORIEGA DDS 401.1 ESSENTIAL HYPERTENSION BENIGN 11/03/2008 OLIVERIO FUNK APRN R 401.1 ESSENTIAL HYPERTENSION BENIGN 11/03/2008 NGHIA FUNK APRNIA R 401.1 ESSENTIAL HYPERTENSION BENIGN 11/03/2008 DERRICK NOEL APRN 401.1 ESSENTIAL HYPERTENSION BENIGN 11/03/2008 DILLON DO, MICHELLE K 401.1 ESSENTIAL HYPERTENSION BENIGN 11/03/2008 DERRICK NOEL APRN T 401.1 ESSENTIAL HYPERTENSION BENIGN 11/03/2008 DERRICK NOEL APRN T 401.1 ESSENTIAL HYPERTENSION BENIGN 11/03/2008 DERRICK NOEL APRN T 401.1 ESSENTIAL HYPERTENSION BENIGN 11/03/2008 DERRICK NOEL APRN 401.1 ESSENTIAL HYPERTENSION BENIGN 11/20/2008 DILLON DO, MICHELLE K 466.0 Acute Bronchitis 11/20/2008 DILLON DO, MICHELLE K 466.0 Acute Bronchitis 11/20/2008 466.0 Acute Bronchitis 11/20/2008 466.0 Acute Bronchitis 11/20/2008 466.0 Acute Bronchitis 11/20/2008 466.0 Acute Bronchitis 11/20/2008 DILLON DO, MICHELLE K 466.0 Acute Bronchitis 11/20/2008 DILLON DO, MICHELLE K 466.0 Acute Bronchitis 11/20/2008 DILLON DO, MICHELLE K 466.0 Acute Bronchitis 11/20/2008 DILLON DO, MICHELLE K 466.0 Acute Bronchitis 11/20/2008 DERRICK NOEL APRN T 466.0 Acute Bronchitis 11/20/2008 DERRICK NOEL APRN T 466.0 Acute Bronchitis 11/20/2008 DERRICK NOEL APRN T 466.0 Acute Bronchitis 11/20/2008 DERRICK NOEL APRN T 466.0 Acute Bronchitis 11/20/2008 DILLON DO, MICHELLE K 466.0 Acute Bronchitis 11/20/2008 KYAW WASHINGTON MD 466.0 Acute Bronchitis 11/20/2008 DERRICK NOEL APRN T 466.0 Acute Bronchitis 11/20/2008 DERRICK NOEL APRN T 466.0 Acute Bronchitis 11/20/2008 DERRICK NOEL APRN T 466.0 Acute Bronchitis 11/20/2008 CHERI NORIEGA DDS 466.0 Acute Bronchitis 11/20/2008 BLESSING LAKHANI OLIVERIO R 466.0 Acute Bronchitis 11/20/2008 BLESSING LAKHANI OLIVERIO R 466.0 Acute Bronchitis 11/20/2008 DERRICK NOEL APRN T 466.0 Acute Bronchitis 11/20/2008 DILLON DO, MICHELLE K 466.0 Acute Bronchitis 11/20/2008 DERRICK NOEL APRN T 466.0 Acute Bronchitis 11/20/2008 DERRICK NOEL APRN T 466.0 Acute Bronchitis 11/20/2008 DERRICK NOEL APRN T 466.0 Acute Bronchitis 11/20/2008 DERRICK NOEL APRN 466.0 Acute Bronchitis 12/23/2008 DILLON DO, MICHELLE K 786.4 Coughing Up Sputum Reddish Brown 12/23/2008 DILLON DO, MICHELLE K 786.4 Coughing Up Sputum Reddish Brown 12/23/2008 786.4 Coughing Up Sputum Reddish Brown 12/23/2008 786.4 Coughing Up Sputum Reddish Brown 12/23/2008 786.4 Coughing Up Sputum Reddish Brown 12/23/2008 786.4 Coughing Up Sputum Reddish Brown 12/23/2008 DILLON DO, MICHELLE K 786.4 Coughing Up Sputum Reddish Brown 12/23/2008 DILLON DO, MICHELLE K 786.4 Coughing Up Sputum Reddish Brown 12/23/2008 DILLON DO, MICHELLE K 786.4 Coughing Up Sputum Reddish Brown 12/23/2008 DILLON DO, MICHELLE K 786.4 Coughing Up Sputum Reddish Brown 12/23/2008 DERRICK NOEL APRN 786.4 Coughing Up Sputum Reddish Brown 12/23/2008 DERRICK NOEL APRN 786.4 Coughing Up Sputum Reddish Brown 12/23/2008 DERRICK NOEL APRN 786.4 Coughing Up Sputum Reddish Brown 12/23/2008 DERRICK NOEL APRN 786.4 Coughing Up Sputum Reddish Brown 12/23/2008 DILLON DO, MICHELLE K 786.4 Coughing Up Sputum Reddish Brown 12/23/2008 KYAW WASHINGTON MD 786.4 Coughing Up Sputum Reddish Brown 12/23/2008 DERRICK NOEL APRN 786.4 Coughing Up Sputum Reddish Brown 12/23/2008 DERRICK NOEL APRN 786.4 Coughing Up Sputum Reddish Brown 12/23/2008 DERRICK NOEL APRN 786.4 Coughing Up Sputum Reddish Brown 12/23/2008 CHERI NORIEGA DDS 786.4 Coughing Up Sputum Reddish Brown 12/23/2008 OLIVERIO FUNK APRN R 786.4 Coughing Up Sputum Reddish Brown 12/23/2008 OLIVERIO FUNK APRN R 786.4 Coughing Up Sputum Reddish Brown 12/23/2008 DERRICK NOEL APRN 786.4 Coughing Up Sputum Reddish Brown 12/23/2008 DILLON DO, MICHELLE K 786.4 Coughing Up Sputum Reddish Brown 12/23/2008 DERRICK NOEL APRN 786.4 Coughing Up Sputum Reddish Brown 12/23/2008 DERRICK NOEL APRN 786.4 Coughing Up Sputum Reddish Brown 12/23/2008 DERRICK NOEL APRN 786.4 Coughing Up Sputum Reddish Brown 12/23/2008 DERRICK ONEL APRN 786.4 Coughing Up Sputum Reddish Brown 12/25/2008 DILLON DO, MICHELLE K 465.9 Upper Respiratory Infection 12/25/2008 DILLON DO, MICHELLE K 465.9 Upper Respiratory Infection 12/25/2008 465.9 Upper Respiratory Infection 12/25/2008 465.9 Upper Respiratory Infection 12/25/2008 465.9 Upper Respiratory Infection 12/25/2008 465.9 Upper Respiratory Infection 12/25/2008 DILLON DO, MICHELLE K 465.9 Upper Respiratory Infection 12/25/2008 DILLON DO, MICHELLE K 465.9 Upper Respiratory Infection 12/25/2008 DILLON DO, MICHELLE K 465.9 Upper Respiratory Infection 12/25/2008 DILLON DO, MICHELLE K 465.9 Upper Respiratory Infection 12/25/2008 DERRICK NOEL APRN T 465.9 Upper Respiratory Infection 12/25/2008 DERRICK NOEL APRN 465.9 Upper Respiratory Infection 12/25/2008 DERRICK NOEL APRN 465.9 Upper Respiratory Infection 12/25/2008 DERRICK NOEL APRN 465.9 Upper Respiratory Infection 12/25/2008 DILLON DO, MICHELLE K 465.9 Upper Respiratory Infection 12/25/2008 KYAW WASHINGTON MD 465.9 Upper Respiratory Infection 12/25/2008 DERRICK NOEL APRN 465.9 Upper Respiratory Infection 12/25/2008 DERRICK NOEL APRN 465.9 Upper Respiratory Infection 12/25/2008 DERRICK NOEL APRN 465.9 Upper Respiratory Infection 12/25/2008 CHERI NORIEGA DDS 465.9 Upper Respiratory Infection 12/25/2008 OLIVERIO FUNK APRN R 465.9 Upper Respiratory Infection 12/25/2008 OLIVERIO FUNK APRN R 465.9 Upper Respiratory Infection 12/25/2008 DERRICK NOEL APRN 465.9 Upper Respiratory Infection 12/25/2008 DILLON DO MICHELLE K 465.9 Upper Respiratory Infection 12/25/2008 DERRICK NOEL APRN 465.9 Upper Respiratory Infection 12/25/2008 DERRICK NOEL APRN 465.9 Upper Respiratory Infection 12/25/2008 DERRICK NOEL APRN 465.9 Upper Respiratory Infection 12/25/2008 DERRICK NOEL APRN T 465.9 Upper Respiratory Infection 02/07/2009 SANTANA GUIDRY MICHELLE K 682.9 Cellulitis And Abscess Of Unspecified Sites 02/07/2009 DILLON DO, MICHELLE K 682.9 Cellulitis And Abscess Of Unspecified Sites 02/07/2009 682.9 Cellulitis And Abscess Of Unspecified Sites 02/07/2009 682.9 Cellulitis And Abscess Of Unspecified Sites 02/07/2009 682.9 Cellulitis And Abscess Of Unspecified Sites 02/07/2009 682.9 Cellulitis And Abscess Of Unspecified Sites 02/07/2009 DILLON DO MICHELLE K 682.9 Cellulitis And Abscess Of Unspecified Sites 02/07/2009 DILLON DO MICHELLE K 682.9 Cellulitis And Abscess Of Unspecified Sites 02/07/2009 DILLON DO MICHELLE K 682.9 Cellulitis And Abscess Of Unspecified Sites 02/07/2009 DILLON DO MICHELLE K 682.9 Cellulitis And Abscess Of Unspecified Sites 02/07/2009 DERRICK NOEL APRN 682.9 Cellulitis And Abscess Of Unspecified Sites 02/07/2009 DERRICK NOEL APRN 682.9 Cellulitis And Abscess Of Unspecified Sites 02/07/2009 DERRICK NOEL APRN 682.9 Cellulitis And Abscess Of Unspecified Sites 02/07/2009 DERRICK NOEL APRN 682.9 Cellulitis And Abscess Of Unspecified Sites 02/07/2009 SANTANA GUIDRY MICHELLE K 682.9 Cellulitis And Abscess Of Unspecified Sites 02/07/2009 KYAW WASHINGTON MD 682.9 Cellulitis And Abscess Of Unspecified Sites 02/07/2009 DERRICK NOEL APRN 682.9 Cellulitis And Abscess Of Unspecified Sites 02/07/2009 DERRICK NOEL APRN 682.9 Cellulitis And Abscess Of Unspecified Sites 02/07/2009 DERRICK NOEL APRN 682.9 Cellulitis And Abscess Of Unspecified Sites 02/07/2009 CHERI NORIEGA DDS 682.9 Cellulitis And Abscess Of Unspecified Sites 02/07/2009 OLIVERIO FUNK APRN R 682.9 Cellulitis And Abscess Of Unspecified Sites 02/07/2009 OLIVERIO FUNK APRN R 682.9 Cellulitis And Abscess Of Unspecified Sites 02/07/2009 DERRICK NOEL APRN 682.9 Cellulitis And Abscess Of Unspecified Sites 02/07/2009 DILLON DO MICHELLE K 682.9 Cellulitis And Abscess Of Unspecified Sites 02/07/2009 DERRICK NOEL APRN 682.9 Cellulitis And Abscess Of Unspecified Sites 02/07/2009 DERRICK NOEL APRN 682.9 Cellulitis And Abscess Of Unspecified Sites 02/07/2009 DERRICK NOEL APRN 682.9 Cellulitis And Abscess Of Unspecified Sites 02/07/2009 DERRICK NOEL APRN T 682.9 Cellulitis And Abscess Of Unspecified Sites 08/04/2009 DILLON DO, MICHELLE K 601.9 PROSTATITIS, UNSPECIFIED 08/04/2009 DILLON DO, MICHELLE K 788.41 Urinary Frequency 08/04/2009 DILLON DO, MICHELLE K 601.9 PROSTATITIS, UNSPECIFIED 08/04/2009 DILLON DO, MICHELLE K 788.41 Urinary Frequency 08/04/2009 601.9 PROSTATITIS, UNSPECIFIED 08/04/2009 788.41 Urinary Frequency 08/04/2009 601.9 PROSTATITIS, UNSPECIFIED 08/04/2009 788.41 Urinary Frequency 08/04/2009 601.9 PROSTATITIS, UNSPECIFIED 08/04/2009 788.41 Urinary Frequency 08/04/2009 601.9 PROSTATITIS, UNSPECIFIED 08/04/2009 788.41 Urinary Frequency 08/04/2009 DILLON DO, MICHELLE K 601.9 PROSTATITIS, UNSPECIFIED 08/04/2009 DILLON DO, MICHELLE K 788.41 Urinary Frequency 08/04/2009 DILLON DO, MICHELLE K 601.9 PROSTATITIS, UNSPECIFIED 08/04/2009 DILLON DO, MICHELLE K 788.41 Urinary Frequency 08/04/2009 DILLON DO, MICHELLE K 601.9 PROSTATITIS, UNSPECIFIED 08/04/2009 DILLON DO, MICHELLE K 788.41 Urinary Frequency 08/04/2009 DILLON DO, MICHELLE K 601.9 PROSTATITIS, UNSPECIFIED 08/04/2009 DILLON DO, MICHELLE K 788.41 Urinary Frequency 08/04/2009 DERRICK NOEL APRN T 601.9 PROSTATITIS, UNSPECIFIED 08/04/2009 DERRICK NOEL APRN T 788.41 Urinary Frequency 08/04/2009 BERT MEDRANON, DERRICK T 601.9 PROSTATITIS, UNSPECIFIED 08/04/2009 DERRCIK NOEL APRN T 788.41 Urinary Frequency 08/04/2009 DERRICK NOEL APRN T 601.9 PROSTATITIS, UNSPECIFIED 08/04/2009 BERT MEDRANONDERRICK T 788.41 Urinary Frequency 08/04/2009 BERT MEDRANONDERRICK T 601.9 PROSTATITIS, UNSPECIFIED 08/04/2009 DERRICK NOEL APRN T 788.41 Urinary Frequency 08/04/2009 DILLON DO, MICHELLE K 601.9 PROSTATITIS, UNSPECIFIED 08/04/2009 DILLON DO, MICHELLE K 788.41 Urinary Frequency 08/04/2009 KYAW WASHINGTON MD 601.9 PROSTATITIS, UNSPECIFIED 08/04/2009 KYAW WASHINGTON MD 788.41 Urinary Frequency 08/04/2009 DERRICK NOEL APRN T 601.9 PROSTATITIS, UNSPECIFIED 08/04/2009 DERRICK NOEL APRN T 788.41 Urinary Frequency 08/04/2009 DERRICK NOEL APRN T 601.9 PROSTATITIS, UNSPECIFIED 08/04/2009 DERRICK NOEL APRN T 788.41 Urinary Frequency 08/04/2009 DERRICK NOEL APRN T 601.9 PROSTATITIS, UNSPECIFIED 08/04/2009 DERRICK NOEL APRN T 788.41 Urinary Frequency 08/04/2009 NORIEGA DDS, CHERI 601.9 PROSTATITIS, UNSPECIFIED 08/04/2009 NORIEGA DDS, CHERI 788.41 Urinary Frequency 08/04/2009 BLESSING LAKHANI OLIVERIO R 601.9 PROSTATITIS, UNSPECIFIED 08/04/2009 BLESSING LAKHANI OLIVERIO R 788.41 Urinary Frequency 08/04/2009 BLESSING LAKHANI OLIVERIO R 601.9 PROSTATITIS, UNSPECIFIED 08/04/2009 BLESSING LAKHANI OLIVERIO R 788.41 Urinary Frequency 08/04/2009 DERRICK NOEL APRN 601.9 PROSTATITIS, UNSPECIFIED 08/04/2009 DERRICK NOEL APRN T 788.41 Urinary Frequency 08/04/2009 DILLON DO, MICHELLE K 601.9 PROSTATITIS, UNSPECIFIED 08/04/2009 DILLON DO, MICHELLE K 788.41 Urinary Frequency 08/04/2009 BERT CORPORATE DIRECTOR OF HUMAN RESOURCESDERRICK Cedeno T 601.9 PROSTATITIS, UNSPECIFIED 08/04/2009 BERT CORPORATE DIRECTOR OF HUMAN RESOURCESDERRICK Cedeno T 788.41 Urinary Frequency 08/04/2009 DERRICK NOEL APRN T 601.9 PROSTATITIS, UNSPECIFIED 08/04/2009 BERT CORPORATE DIRECTOR OF HUMAN RESOURCESDERRICK T 788.41 Urinary Frequency 08/04/2009 BERT CORPORATE DIRECTOR OF HUMAN RESOURCESDERRICK T 601.9 PROSTATITIS, UNSPECIFIED 08/04/2009 DERRICK NOEL APRN T 788.41 Urinary Frequency 08/04/2009 DERRICK NOEL APRN T 601.9 PROSTATITIS, UNSPECIFIED 08/04/2009 DERRICK NOEL APRN T 788.41 Urinary Frequency 10/30/2009 DILLON DO, MICHELLE K 414.01 CORONARY ARTERY STENOSIS MULTI-VESSEL 10/30/2009 DILLON DO, MICHELLE K 414.01 CORONARY ARTERY STENOSIS MULTI-VESSEL 10/30/2009 414.01 CORONARY ARTERY STENOSIS MULTI-VESSEL 10/30/2009 414.01 CORONARY ARTERY STENOSIS MULTI-VESSEL 10/30/2009 414.01 CORONARY ARTERY STENOSIS MULTI-VESSEL 10/30/2009 414.01 CORONARY ARTERY STENOSIS MULTI-VESSEL 10/30/2009 DILLON DO, MICHELLE K 414.01 CORONARY ARTERY STENOSIS MULTI-VESSEL 10/30/2009 DILLON DO, MICHELLE K 414.01 CORONARY ARTERY STENOSIS MULTI-VESSEL 10/30/2009 DILLON DO, MICHELLE K 414.01 CORONARY ARTERY STENOSIS MULTI-VESSEL 10/30/2009 DILLON DO, MICHELLE K 414.01 CORONARY ARTERY STENOSIS MULTI-VESSEL 10/30/2009 DERRICK NOEL APRN T 414.01 CORONARY ARTERY STENOSIS MULTI-VESSEL 10/30/2009 DERRICK NOEL APRN T 414.01 CORONARY ARTERY STENOSIS MULTI-VESSEL 10/30/2009 DERRICK NOEL APRN T 414.01 CORONARY ARTERY STENOSIS MULTI-VESSEL 10/30/2009 DERRICK NOEL APRN T 414.01 CORONARY ARTERY STENOSIS MULTI-VESSEL 10/30/2009 DILLON DO, MICHELLE K 414.01 CORONARY ARTERY STENOSIS MULTI-VESSEL 10/30/2009 KYAW WASHINGTON MD 414.01 CORONARY ARTERY STENOSIS MULTI-VESSEL 10/30/2009 DERRICK NOEL APRN T 414.01 CORONARY ARTERY STENOSIS MULTI-VESSEL 10/30/2009 DERRICK NOEL APRN T 414.01 CORONARY ARTERY STENOSIS MULTI-VESSEL 10/30/2009 DERRICK NOEL APRN T 414.01 CORONARY ARTERY STENOSIS MULTI-VESSEL 10/30/2009 NORIEGA DDS, CHERI 414.01 CORONARY ARTERY STENOSIS MULTI-VESSEL 10/30/2009 BLESSING LAKHANI OLIVERIO R 414.01 CORONARY ARTERY STENOSIS MULTI-VESSEL 10/30/2009 BLESSING LAKHANI OLIVERIO R 414.01 CORONARY ARTERY STENOSIS MULTI-VESSEL 10/30/2009 DERRICK NOEL APRN T 414.01 CORONARY ARTERY STENOSIS MULTI-VESSEL 10/30/2009 AAKASH DILLON DOA K 414.01 CORONARY ARTERY STENOSIS MULTI-VESSEL 10/30/2009 DERRICK NOEL APRN T 414.01 CORONARY ARTERY STENOSIS MULTI-VESSEL 10/30/2009 DERRICK NOEL APRN T 414.01 CORONARY ARTERY STENOSIS MULTI-VESSEL 10/30/2009 DERRICK NOEL APRN T 414.01 CORONARY ARTERY STENOSIS MULTI-VESSEL 10/30/2009 DERRICK NOEL APRN T 414.01 CORONARY ARTERY STENOSIS MULTI-VESSEL 01/18/2010 SANTANA GUIDRY MICHELLE K 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 01/18/2010 DILLON DO, MICHELLE K 786.2 Cough 01/18/2010 DILOLN DO MICHELLE K 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 01/18/2010 DILLON , MICHELLE K 786.2 Cough 01/18/2010 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 01/18/2010 786.2 Cough 01/18/2010 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 01/18/2010 786.2 Cough 01/18/2010 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 01/18/2010 786.2 Cough 01/18/2010 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 01/18/2010 786.2 Cough 01/18/2010 DILLON DO MICHELLE K 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 01/18/2010 DILLON DO MICHELLE K 786.2 Cough 01/18/2010 DILLON DO MICHELLE K 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 01/18/2010 DILLON DO MICHELLE K 786.2 Cough 01/18/2010 DILLON DO MICHELLE K 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 01/18/2010 DILLON DO, MICHELLE K 786.2 Cough 01/18/2010 DILLON DO, MICHELLE K 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 01/18/2010 DILLON DO, MICHELLE K 786.2 Cough 01/18/2010 DERRICK NOEL APRN T 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 01/18/2010 DERRICK NOEL APRN 786.2 Cough 01/18/2010 DERRICK NOEL APRN 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 01/18/2010 DERRICK NOEL APRN 786.2 Cough 01/18/2010 DERRICK NOEL APRN 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 01/18/2010 DERRICK NOEL APRN 786.2 Cough 01/18/2010 DERRICK NOEL APRN 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 01/18/2010 DERRICK NOEL APRN 786.2 Cough 01/18/2010 AAKASH DILLON DOA K 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 01/18/2010 SANTANA DO MICHELLE K 786.2 Cough 01/18/2010 KYAW WASHINGTON MD 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 01/18/2010 KYAW WASHINGTON MD 786.2 Cough 01/18/2010 DERRICK NOEL APRN 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 01/18/2010 DERRICK NOEL APRN 786.2 Cough 01/18/2010 DERRICK NOEL APRN 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 01/18/2010 DERRICK NOEL APRN 786.2 Cough 01/18/2010 DERRICK NOEL APRN 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 01/18/2010 DERRICK NOEL APRN 786.2 Cough 01/18/2010 GOLDIE NORIEGA DDSW 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 01/18/2010 NORIEGA DDS, CHERI 786.2 Cough 01/18/2010 OLIVERIO FUNK APRN R 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 01/18/2010 OLIVERIO FUNK APRN R 786.2 Cough 01/18/2010 OLIVERIO FUNK APRN R 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 01/18/2010 NGHIA FUNK APRNIA R 786.2 Cough 01/18/2010 DERRICK NOEL APRN 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 01/18/2010 DERRICK NOEL APRN T 786.2 Cough 01/18/2010 DILLON DO, MICHELLE K 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 01/18/2010 DILLON DO, MICHELLE K 786.2 Cough 01/18/2010 DERRICK NOEL APRN T 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 01/18/2010 DERRICK NOEL APRN 786.2 Cough 01/18/2010 DERRICK NOEL APRN T 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 01/18/2010 DERRICK NOEL APRN 786.2 Cough 01/18/2010 DERRICK NOEL APRN 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 01/18/2010 DERRICK NOEL APRN 786.2 Cough 01/18/2010 DERRICK NOEL APRN 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 01/18/2010 DERRICK NOEL APRN 786.2 Cough 03/01/2010 DILLON DO, MICHELLE K 482.9 Bacterial Pneumonia Unspecified 03/01/2010 DILLON DO, MICHELLE K 482.9 Bacterial Pneumonia Unspecified 03/01/2010 482.9 Bacterial Pneumonia Unspecified 03/01/2010 482.9 Bacterial Pneumonia Unspecified 03/01/2010 482.9 Bacterial Pneumonia Unspecified 03/01/2010 482.9 Bacterial Pneumonia Unspecified 03/01/2010 DILLON DO, MICHELLE K 482.9 Bacterial Pneumonia Unspecified 03/01/2010 DILLON DO, MICHELLE K 482.9 Bacterial Pneumonia Unspecified 03/01/2010 DILLON DO, MICHELLE K 482.9 Bacterial Pneumonia Unspecified 03/01/2010 DILLON DO, MICHELLE K 482.9 Bacterial Pneumonia Unspecified 03/01/2010 DERRICK NOEL APRN 482.9 Bacterial Pneumonia Unspecified 03/01/2010 DERRICK NOEL APRN 482.9 Bacterial Pneumonia Unspecified 03/01/2010 DERRICK NOEL APRN 482.9 Bacterial Pneumonia Unspecified 03/01/2010 DERRICK NOEL APRN 482.9 Bacterial Pneumonia Unspecified 03/01/2010 DILLON DO MICHELLE K 482.9 Bacterial Pneumonia Unspecified 03/01/2010 KYAW WASHINGTON MD 482.9 Bacterial Pneumonia Unspecified 03/01/2010 DERRICK NOEL APRN T 482.9 Bacterial Pneumonia Unspecified 03/01/2010 BERT MEDRANON, DERRICK T 482.9 Bacterial Pneumonia Unspecified 03/01/2010 BERT MEDRANONDERRICK T 482.9 Bacterial Pneumonia Unspecified 03/01/2010 CHERI NORIEGA DDS 482.9 Bacterial Pneumonia Unspecified 03/01/2010 [employer]ING [employer], OLIVERIO R 482.9 Bacterial Pneumonia Unspecified 03/01/2010 BLESSING MEDRANON, OLIVERIO R 482.9 Bacterial Pneumonia Unspecified 03/01/2010 DERRICK NOEL APRN T 482.9 Bacterial Pneumonia Unspecified 03/01/2010 SANTANA DO, MICHELLE K 482.9 Bacterial Pneumonia Unspecified 03/01/2010 DERRICK NOEL APRN T 482.9 Bacterial Pneumonia Unspecified 03/01/2010 DERRICK NOEL APRN T 482.9 Bacterial Pneumonia Unspecified 03/01/2010 DERRICK NOEL APRN T 482.9 Bacterial Pneumonia Unspecified 03/01/2010 DERRICK NOEL APRN T 482.9 Bacterial Pneumonia Unspecified 03/20/2010 DILLON DO, MICHELLE K 272.1 ESSENTIAL HYPERTRIGLYCERIDEMIA 03/20/2010 DILLON DO, MICHELLE K 272.1 ESSENTIAL HYPERTRIGLYCERIDEMIA 03/20/2010 272.1 ESSENTIAL HYPERTRIGLYCERIDEMIA 03/20/2010 272.1 ESSENTIAL HYPERTRIGLYCERIDEMIA 03/20/2010 272.1 ESSENTIAL HYPERTRIGLYCERIDEMIA 03/20/2010 272.1 ESSENTIAL HYPERTRIGLYCERIDEMIA 03/20/2010 DILLON DO, MICHELLE K 272.1 ESSENTIAL HYPERTRIGLYCERIDEMIA 03/20/2010 DILLON DO, MICHELLE K 272.1 ESSENTIAL HYPERTRIGLYCERIDEMIA 03/20/2010 DILLON DO, MICHELLE K 272.1 ESSENTIAL HYPERTRIGLYCERIDEMIA 03/20/2010 DILLON DO, MICHELLE K 272.1 ESSENTIAL HYPERTRIGLYCERIDEMIA 03/20/2010 DERRICK NOEL APRN T 272.1 ESSENTIAL HYPERTRIGLYCERIDEMIA 03/20/2010 DERRICK NOEL APRN 272.1 ESSENTIAL HYPERTRIGLYCERIDEMIA 03/20/2010 DERRICK NOEL APRN 272.1 ESSENTIAL HYPERTRIGLYCERIDEMIA 03/20/2010 DERRICK NOEL APRN T 272.1 ESSENTIAL HYPERTRIGLYCERIDEMIA 03/20/2010 DILLON DO, MICHELLE K 272.1 ESSENTIAL HYPERTRIGLYCERIDEMIA 03/20/2010 KYAW WASHINGTON MD 272.1 ESSENTIAL HYPERTRIGLYCERIDEMIA 03/20/2010 DERRICK NOEL APRN 272.1 ESSENTIAL HYPERTRIGLYCERIDEMIA 03/20/2010 DERRICK NOEL APRN T 272.1 ESSENTIAL HYPERTRIGLYCERIDEMIA 03/20/2010 DERRICK NOEL APRN T 272.1 ESSENTIAL HYPERTRIGLYCERIDEMIA 03/20/2010 LEANN IRVIN CHERI 272.1 ESSENTIAL HYPERTRIGLYCERIDEMIA 03/20/2010 BLESSING LAKHANI, OLIVERIO R 272.1 ESSENTIAL HYPERTRIGLYCERIDEMIA 03/20/2010 BLESSING LAKHANI, OLIVERIO R 272.1 ESSENTIAL HYPERTRIGLYCERIDEMIA 03/20/2010 DERRICK NOEL APRN T 272.1 ESSENTIAL HYPERTRIGLYCERIDEMIA 03/20/2010 DILLON DO, MICHELLE K 272.1 ESSENTIAL HYPERTRIGLYCERIDEMIA 03/20/2010 DERRICK NOEL APRN T 272.1 ESSENTIAL HYPERTRIGLYCERIDEMIA 03/20/2010 DERRICK NOEL APRN T 272.1 ESSENTIAL HYPERTRIGLYCERIDEMIA 03/20/2010 DERRICK NOEL APRN T 272.1 ESSENTIAL HYPERTRIGLYCERIDEMIA 03/20/2010 DERRICK NOEL APRN T 272.1 ESSENTIAL HYPERTRIGLYCERIDEMIA 09/06/2010 DILLON DO MICHELLE K V58.69 taking high-risk medication 09/06/2010 DILLON DO MICHELLE K V58.69 taking high-risk medication 09/06/2010 V58.69 taking high- risk medication 09/06/2010 V58.69 taking high- risk medication 09/06/2010 V58.69 taking high- risk medication 09/06/2010 V58.69 taking high- risk medication 09/06/2010 DILLON DO MICHELLE K V58.69 taking high-risk medication 09/06/2010 DILLON DO MICHELLE K V58.69 taking high-risk medication 09/06/2010 DILLON DO MICHELLE K V58.69 taking high-risk medication 09/06/2010 DILLON DO MICHELLE K V58.69 taking high-risk medication 09/06/2010 DERRICK NOEL APRN V58.69 taking high-risk medication 09/06/2010 DERRICK NOEL APRN V58.69 taking high-risk medication 09/06/2010 DERRICK NOEL APRN V58.69 taking high-risk medication 09/06/2010 DERRICK NOEL APRN V58.69 taking high-risk medication 09/06/2010 DILLON DO MICHELLE K V58.69 taking high-risk medication 09/06/2010 KYAW WASHINGTON MD V58.69 taking high-risk medication 09/06/2010 [employer], DERRICK T V58.69 taking high-risk medication 09/06/2010 DERRICK NOEL APRN V58.69 taking high-risk medication 09/06/2010 DERRICK NOEL APRN V58.69 taking high-risk medication 09/06/2010 NORIEGA ALBAROCHERI V58.69 taking high-risk medication 09/06/2010 OLIVERIO FUNK APRN R V58.69 taking high-risk medication 09/06/2010 OLIVERIO FUNK APRN R V58.69 taking high-risk medication 09/06/2010 DERRICK NOEL APRN V58.69 taking high-risk medication 09/06/2010 DILLON AAKASH GUIDRYA K V58.69 taking high-risk medication 09/06/2010 DERRICK NOEL APRN V58.69 taking high-risk medication 09/06/2010 DERRICK NOEL APRN V58.69 taking high-risk medication 09/06/2010 DERRICK NOEL APRN V58.69 taking high-risk medication 09/06/2010 DERRICK NOEL APRN V58.69 taking high-risk medication 10/03/2010 DILLON DO, MICHELLE K 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 10/03/2010 DILLON DO, MICHELLE K 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 10/03/2010 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 10/03/2010 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 10/03/2010 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 10/03/2010 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 10/03/2010 DILLON DO, MICHELLE K 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 10/03/2010 DILLON DO, MICHELLE K 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 10/03/2010 DILLON DO, MICHELLE K 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 10/03/2010 DILLON DO, MICHELLE K 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 10/03/2010 DERRICK NOEL APRN 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 10/03/2010 DERRICK NOEL APRN 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 10/03/2010 DERRICK NOEL APRN 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 10/03/2010 DERRICK NOEL APRN 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 10/03/2010 DILLON DO, MICHELLE K 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 10/03/2010 PADMINI MANN, KYAW 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 10/03/2010 [employer], DERRICK T 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 10/03/2010 [employer]ERT [employer], DERRICK T 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 10/03/2010 BERT [employer]ATE [employer], DERRICK T 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 10/03/2010 LEANN DDS, CHERI 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 10/03/2010 BLESSING [employer]ATE [employer], OLIVERIO R 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 10/03/2010 BLESSING [employer]ATE [employer], OLIVERIO R 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 10/03/2010 BERT [employer], DERRICK T 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 10/03/2010 DILLON DO, MICHELLE K 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 10/03/2010 BERT [employer], DERRICK T 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 10/03/2010 BERT MEDRANON, DERRICK T 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 10/03/2010 BERT MEDRANON, DERRICK T 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 10/03/2010 BERT MEDRANON, DERRICK T 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 12/11/2010 DILLON DO, MICHELLE K 486 Pneumonia Unspecified 12/11/2010 DILLON DO, MICHELLE K 486 Pneumonia Unspecified 12/11/2010 486 Pneumonia Unspecified 12/11/2010 486 Pneumonia Unspecified 12/11/2010 486 Pneumonia Unspecified 12/11/2010 486 Pneumonia Unspecified 12/11/2010 DILLON DO, MICHELLE K 486 Pneumonia Unspecified 12/11/2010 DILLON DO, MICHELLE K 486 Pneumonia Unspecified 12/11/2010 DILLON DO, MICHELLE K 486 Pneumonia Unspecified 12/11/2010 DILLON DO, MICHELLE K 486 Pneumonia Unspecified 12/11/2010 BERT LAKHANI, DERRICK T 486 Pneumonia Unspecified 12/11/2010 BERT LAKHANI, DERRICK T 486 Pneumonia Unspecified 12/11/2010 BERT LAKHANI, DERRICK T 486 Pneumonia Unspecified 12/11/2010 BERT LAKHANI, DERRICK T 486 Pneumonia Unspecified 12/11/2010 DILLON DO, MICHELLE K 486 Pneumonia Unspecified 12/11/2010 PADMINI MANN, KYAW 486 Pneumonia Unspecified 12/11/2010 DERRICK NOEL APRN 486 Pneumonia Unspecified 12/11/2010 DERRICK NOEL APRN T 486 Pneumonia Unspecified 12/11/2010 DERRICK NOEL APRN T 486 Pneumonia Unspecified 12/11/2010 LEANN IRVIN, CHERI 486 Pneumonia Unspecified 12/11/2010 OLIVERIO FUNK APRN R 486 Pneumonia Unspecified 12/11/2010 OLIVREIO FUNK APRN R 486 Pneumonia Unspecified 12/11/2010 BERT LAKHANI, DERRICK T 486 Pneumonia Unspecified 12/11/2010 DILLON DO, MICHELLE K 486 Pneumonia Unspecified 12/11/2010 DERRICK NOEL APRN T 486 Pneumonia Unspecified 12/11/2010 BERT LAKHANI, DERRICK T 486 Pneumonia Unspecified 12/11/2010 BERT MEDRANON, DERRICK T 486 Pneumonia Unspecified 12/11/2010 BERT LAKHANI, DERRICK T 486 Pneumonia Unspecified 12/18/2010 DILLON DO, MICHELLE K 786.05 Shortness Of Breath 12/18/2010 DILLON DO, MICHELLE K 786.05 Shortness Of Breath 12/18/2010 786.05 Shortness Of Breath 12/18/2010 786.05 Shortness Of Breath 12/18/2010 786.05 Shortness Of Breath 12/18/2010 786.05 Shortness Of Breath 12/18/2010 DILLON DO, MICHELLE K 786.05 Shortness Of Breath 12/18/2010 DILLON DO, MICHELLE K 786.05 Shortness Of Breath 12/18/2010 DILLON DO, MICHELLE K 786.05 Shortness Of Breath 12/18/2010 DILLON DO, MICHELLE K 786.05 Shortness Of Breath 12/18/2010 DERRICK NOEL APRN T 786.05 Shortness Of Breath 12/18/2010 DERRICK NOEL APRN T 786.05 Shortness Of Breath 12/18/2010 DERRICK NOEL APRN T 786.05 Shortness Of Breath 12/18/2010 DERRICK NOEL APRN T 786.05 Shortness Of Breath 12/18/2010 DILLON DO, MICHELLE K 786.05 Shortness Of Breath 12/18/2010 KYAW WASHINGTON MD 786.05 Shortness Of Breath 12/18/2010 DERRICK NOEL APRN 786.05 Shortness Of Breath 12/18/2010 DERRICK NOEL APRN 786.05 Shortness Of Breath 12/18/2010 DERRICK NOEL APRN T 786.05 Shortness Of Breath 12/18/2010 CHERI NORIEGA DDS 786.05 Shortness Of Breath 12/18/2010 [employer], OLIVERIO R 786.05 Shortness Of Breath 12/18/2010 [employer]K [employer], OLIVERIO R 786.05 Shortness Of Breath 12/18/2010 BERT [employer], DERRICK T 786.05 Shortness Of Breath 12/18/2010 DILLON DO, MICHELLE K 786.05 Shortness Of Breath 12/18/2010 [employer]ERT [employer], DERRICK T 786.05 Shortness Of Breath 12/18/2010 BERT MEDRANON, DERRICK T 786.05 Shortness Of Breath 12/18/2010 BERT [employer], DERRICK T 786.05 Shortness Of Breath 12/18/2010 BERT [employer], DERRICK T 786.05 Shortness Of Breath 09/20/2011 DILLON DO, MICHELLE K 780.8 GENERALIZED HYPERHIDROSIS 09/20/2011 DILLON DO, MICHELLE K V68.1 ISSUE OF REPEAT PRESCRIPTIONS 09/20/2011 DILLON DO, MICHELLE K 780.8 GENERALIZED HYPERHIDROSIS 09/20/2011 DILLON DO, MICHELLE K V68.1 ISSUE OF REPEAT PRESCRIPTIONS 09/20/2011 780.8 GENERALIZED HYPERHIDROSIS 09/20/2011 V68.1 ISSUE OF REPEAT PRESCRIPTIONS 09/20/2011 780.8 GENERALIZED HYPERHIDROSIS 09/20/2011 V68.1 ISSUE OF REPEAT PRESCRIPTIONS 09/20/2011 780.8 GENERALIZED HYPERHIDROSIS 09/20/2011 V68.1 ISSUE OF REPEAT PRESCRIPTIONS 09/20/2011 780.8 GENERALIZED HYPERHIDROSIS 09/20/2011 V68.1 ISSUE OF REPEAT PRESCRIPTIONS 09/20/2011 DILLON DO, MICHELLE K 780.8 GENERALIZED HYPERHIDROSIS 09/20/2011 DILLON DO, MICHELLE K V68.1 ISSUE OF REPEAT PRESCRIPTIONS 09/20/2011 DILLON DO, MICHELLE K 780.8 GENERALIZED HYPERHIDROSIS 09/20/2011 DILLON DO, MICHELLE K V68.1 ISSUE OF REPEAT PRESCRIPTIONS 09/20/2011 DILLON DO, MICHELLE K 780.8 GENERALIZED HYPERHIDROSIS 09/20/2011 DILLON DO, MICHELLE K V68.1 ISSUE OF REPEAT PRESCRIPTIONS 09/20/2011 DILLON DO, MICHELLE K 780.8 GENERALIZED HYPERHIDROSIS 09/20/2011 DILLON DO, MICHELLE K V68.1 ISSUE OF REPEAT PRESCRIPTIONS 09/20/2011 DERRICK NOEL APRN T 780.8 GENERALIZED HYPERHIDROSIS 09/20/2011 DERRICK NOEL APRN T V68.1 ISSUE OF REPEAT PRESCRIPTIONS 09/20/2011 DERRICK NOEL APRN 780.8 GENERALIZED HYPERHIDROSIS 09/20/2011 DERRICK NOEL APRN V68.1 ISSUE OF REPEAT PRESCRIPTIONS 09/20/2011 DERRICK NOEL APRN 780.8 GENERALIZED HYPERHIDROSIS 09/20/2011 DERRICK NOEL APRN V68.1 ISSUE OF REPEAT PRESCRIPTIONS 09/20/2011 DERRICK NOEL APRN 780.8 GENERALIZED HYPERHIDROSIS 09/20/2011 DERRICK NOEL APRN V68.1 ISSUE OF REPEAT PRESCRIPTIONS 09/20/2011 DILLON DO, MICHELLE K 780.8 GENERALIZED HYPERHIDROSIS 09/20/2011 DILLON DO, MICHELLE K V68.1 ISSUE OF REPEAT PRESCRIPTIONS 09/20/2011 KYAW WASHINGTON MD 780.8 GENERALIZED HYPERHIDROSIS 09/20/2011 KYAW WASHINGTON MD V68.1 ISSUE OF REPEAT PRESCRIPTIONS 09/20/2011 DERRICK NOEL APRN 780.8 GENERALIZED HYPERHIDROSIS 09/20/2011 DERRICK NOEL APRN V68.1 ISSUE OF REPEAT PRESCRIPTIONS 09/20/2011 DERRICK NOEL APRN 780.8 GENERALIZED HYPERHIDROSIS 09/20/2011 DERRICK NOEL APRN V68.1 ISSUE OF REPEAT PRESCRIPTIONS 09/20/2011 DERRICK NOEL APRN 780.8 GENERALIZED HYPERHIDROSIS 09/20/2011 DERRICK NOEL APRN V68.1 ISSUE OF REPEAT PRESCRIPTIONS 09/20/2011 NORIEGA DDS, CHERI 780.8 GENERALIZED HYPERHIDROSIS 09/20/2011 NORIEGA DDS, CHERI V68.1 ISSUE OF REPEAT PRESCRIPTIONS 09/20/2011 OLIVERIO FUNK APRN R 780.8 GENERALIZED HYPERHIDROSIS 09/20/2011 NGHIA FUNK APRNIA R V68.1 ISSUE OF REPEAT PRESCRIPTIONS 09/20/2011 OLIVERIO FUNK APRN R 780.8 GENERALIZED HYPERHIDROSIS 09/20/2011 OLIVERIO FUNK APRN R V68.1 ISSUE OF REPEAT PRESCRIPTIONS 09/20/2011 DERRICK NOEL APRN 780.8 GENERALIZED HYPERHIDROSIS 09/20/2011 DERRICK NOEL APRN V68.1 ISSUE OF REPEAT PRESCRIPTIONS 09/20/2011 DILLON DO, MICHELLE K 780.8 GENERALIZED HYPERHIDROSIS 09/20/2011 DILLON DO, MICHELLE K V68.1 ISSUE OF REPEAT PRESCRIPTIONS 09/20/2011 DERRICK NOEL APRN T 780.8 GENERALIZED HYPERHIDROSIS 09/20/2011 DERRICK NOEL APRN T V68.1 ISSUE OF REPEAT PRESCRIPTIONS 09/20/2011 DERRICK NOEL APRN T 780.8 GENERALIZED HYPERHIDROSIS 09/20/2011 DERRICK NOEL APRN T V68.1 ISSUE OF REPEAT PRESCRIPTIONS 09/20/2011 DERRICK NOEL APRN T 780.8 GENERALIZED HYPERHIDROSIS 09/20/2011 DERRICK NOEL APRN T V68.1 ISSUE OF REPEAT PRESCRIPTIONS 09/20/2011 DERRICK NOEL APRN T 780.8 GENERALIZED HYPERHIDROSIS 09/20/2011 DERRICK NOEL APRN T V68.1 ISSUE OF REPEAT PRESCRIPTIONS 10/09/2011 DILLON DO, MICHELLE K 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 10/09/2011 DILLON DO, MICHELLE K 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 10/09/2011 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 10/09/2011 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 10/09/2011 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 10/09/2011 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 10/09/2011 DILLON DO, MICHELLE K 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 10/09/2011 DILLON DO, MICHELLE K 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 10/09/2011 DILLON DO, MICHELLE K 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 10/09/2011 DILLON DO, MICHELLE K 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 10/09/2011 DERRICK NOEL APRN T 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 10/09/2011 DERRICK NOEL APRN T 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 10/09/2011 DERRICK NOEL APRN T 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 10/09/2011 DERRICK NOEL APRN T 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 10/09/2011 DILLON DO, MICHELLE K 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 10/09/2011 KYAW WASHINGTON MD 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 10/09/2011 DERRICK NOEL APRN T 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 10/09/2011 DERRICK NOEL APRN T 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 10/09/2011 DERRICK NOEL APRN T 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 10/09/2011 CHERI NORIEGA DDS 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 10/09/2011 [employer]ING [employer], OLIVERIO R 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 10/09/2011 BLESSING MEDRANON, OLIVERIO R 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 10/09/2011 DERRICK NOEL APRN T 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 10/09/2011 DILLON DO, MICHELLE K 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21 BRONCHITIS AECB 11/06/2011 786.2 COUGH 11/06/2011 491.21 BRONCHITIS AECB 11/06/2011 786.2 COUGH 11/06/2011 DILLON DO, MICHELLE K 491.21 BRONCHITIS AECB 11/06/2011 DILLON DO, MICHELLE K 786.2 COUGH 11/06/2011 DILLON DO, MICHELLE K 491.21 BRONCHITIS AECB 11/06/2011 DILLON DO, MICHELLE K 786.2 COUGH 11/06/2011 DILLON DO, MICHELLE K 491.21 BRONCHITIS AECB 11/06/2011 DILLON DO, MICHELLE K 786.2 COUGH 11/06/2011 DILLON DO, MICHELLE K 491.21 BRONCHITIS AECB 11/06/2011 DILLON DO, MICHELLE K 786.2 COUGH 11/06/2011 DERRICK NOEL APRN T 491.21 BRONCHITIS AECB 11/06/2011 DERRICK NOEL APRN T 786.2 COUGH 11/06/2011 DERRICK NOEL APRN 491.21 BRONCHITIS AECB 11/06/2011 DERRICK NOEL APRN T 786.2 COUGH 11/06/2011 DERRICK NOEL APRN T 491.21 BRONCHITIS AECB 11/06/2011 DERRICK NOEL APRN T 786.2 COUGH 11/06/2011 DERRICK NOEL APRN T 491.21 BRONCHITIS AECB 11/06/2011 DERRICK NOEL APRN T 786.2 COUGH 11/06/2011 DILLON DO, MICHELLE K 491.21 BRONCHITIS AECB 11/06/2011 DILLON DO, MICHELLE K 786.2 COUGH 11/06/2011 KYAW WASHINGTON MD 491.21 BRONCHITIS AECB 11/06/2011 KYAW WASHINGTON MD 786.2 COUGH 11/06/2011 DERRICK NOEL APRN 491.21 BRONCHITIS AECB 11/06/2011 DERRICK NOEL APRN 786.2 COUGH 11/06/2011 DERRICK NOEL APRN 491.21 BRONCHITIS AECB 11/06/2011 DERRICK NOEL APRN T 786.2 COUGH 11/06/2011 DERRICK NOEL APRN 491.21 BRONCHITIS AECB 11/06/2011 DERRICK NOEL APRN T 786.2 COUGH 11/06/2011 NORIEGA DDS, CHERI 491.21 BRONCHITIS AECB 11/06/2011 NORIEGA DDS, CHERI 786.2 COUGH 11/06/2011 BLESSING LAKHANI OLIVERIO R 491.21 BRONCHITIS AECB 11/06/2011 BLESSING LAKHANI OLIVERIO R 786.2 COUGH 11/06/2011 BLESSING LAKHANI OLIVERIO R 491.21 BRONCHITIS AECB 11/06/2011 NGHIA FUNK APRNIA R 786.2 COUGH 11/06/2011 DERRICK NOEL APRN T 491.21 BRONCHITIS AECB 11/06/2011 DERRICK NOEL APRN T 786.2 COUGH 11/06/2011 DILLON DO, MICHELLE K 491.21 BRONCHITIS AECB 11/06/2011 DILLON DO, MICHELLE K 786.2 COUGH 11/06/2011 DERRICK NOEL APRN T 491.21 BRONCHITIS AECB 11/06/2011 DERRICK NOEL APRN T 786.2 COUGH 11/06/2011 DERRICK NOEL APRN T 491.21 BRONCHITIS AECB 11/06/2011 DERRICK NOEL APRN T 786.2 COUGH 11/06/2011 DERRICK NOEL APRN T 491.21 BRONCHITIS AECB 11/06/2011 DERRICK NOEL APRN 786.2 COUGH 11/06/2011 DERRICK NOEL APRN 491.21 BRONCHITIS AECB 11/06/2011 DERRICK NOEL APRN 786.2 COUGH 12/25/2011 DILLON DO, MICHELLE K 465.9 UPPER RESPIRATORY INFECTION 12/25/2011 DILLON DO, MICHELLE K 465.9 UPPER RESPIRATORY INFECTION 12/25/2011 465.9 UPPER RESPIRATORY INFECTION 12/25/2011 465.9 UPPER RESPIRATORY INFECTION 12/25/2011 465.9 UPPER RESPIRATORY INFECTION 12/25/2011 465.9 UPPER RESPIRATORY INFECTION 12/25/2011 DILLON DO, MICHELLE K 465.9 UPPER RESPIRATORY INFECTION 12/25/2011 DILLON DO, MICHELLE K 465.9 UPPER RESPIRATORY INFECTION 12/25/2011 DILLON DO, MICHELLE K 465.9 UPPER RESPIRATORY INFECTION 12/25/2011 DILLON DO, MICHELLE K 465.9 UPPER RESPIRATORY INFECTION 12/25/2011 DERRICK NOEL APRN T 465.9 UPPER RESPIRATORY INFECTION 12/25/2011 DERRICK NOEL APRN T 465.9 UPPER RESPIRATORY INFECTION 12/25/2011 DERRICK NOEL APRN T 465.9 UPPER RESPIRATORY INFECTION 12/25/2011 DERRICK NOEL APRN T 465.9 UPPER RESPIRATORY INFECTION 12/25/2011 DILLON DO, MICHELLE K 465.9 UPPER RESPIRATORY INFECTION 12/25/2011 KYAW WASHINGTON MD 465.9 UPPER RESPIRATORY INFECTION 12/25/2011 DERRICK NOEL APRN T 465.9 UPPER RESPIRATORY INFECTION 12/25/2011 DERRICK NOEL APRN T 465.9 UPPER RESPIRATORY INFECTION 12/25/2011 DERRICK NOEL APRN T 465.9 UPPER RESPIRATORY INFECTION 12/25/2011 CHERI NORIEGA DDS 465.9 UPPER RESPIRATORY INFECTION 12/25/2011 ZIYAD FUNK APRNRICIA R 465.9 UPPER RESPIRATORY INFECTION 12/25/2011 BLESSING LAKHANI OLIVERIO R 465.9 UPPER RESPIRATORY INFECTION 12/25/2011 DERRICK NOEL APRN T 465.9 UPPER RESPIRATORY INFECTION 12/25/2011 DILLON DO, MICHELLE K 465.9 UPPER RESPIRATORY INFECTION 12/25/2011 DERRICK NOEL APRN T 465.9 UPPER RESPIRATORY INFECTION 12/25/2011 DERRICK NOEL APRN T 465.9 UPPER RESPIRATORY INFECTION 12/25/2011 DERRICK NOEL APRN T 465.9 UPPER RESPIRATORY INFECTION 12/25/2011 BERT [employer], DERRICK T 465.9 UPPER RESPIRATORY INFECTION 05/30/2012 DILLON DO, MICHELLE K 486 PNEUMONIA UNSPECIFIED 05/30/2012 DILLON DO, MICHELLE K 486 PNEUMONIA UNSPECIFIED 05/30/2012 486 PNEUMONIA UNSPECIFIED 05/30/2012 486 PNEUMONIA UNSPECIFIED 05/30/2012 486 PNEUMONIA UNSPECIFIED 05/30/2012 486 PNEUMONIA UNSPECIFIED 05/30/2012 DILLON DO, MICHELLE K 486 PNEUMONIA UNSPECIFIED 05/30/2012 DILLON DO, MICHELLE K 486 PNEUMONIA UNSPECIFIED 05/30/2012 DILLON DO, MICHELLE K 486 PNEUMONIA UNSPECIFIED 05/30/2012 DILLON DO, MICHELLE K 486 PNEUMONIA UNSPECIFIED 05/30/2012 BERT [employer], DERRICK T 486 PNEUMONIA UNSPECIFIED 05/30/2012 BERT [employer]PORATE [employer], DERRICK T 486 PNEUMONIA UNSPECIFIED 05/30/2012 BERT [employer]PORATE DIRECT[employer], DERRICK T 486 PNEUMONIA UNSPECIFIED 05/30/2012 BERT [employer]PORATE DIRECT[employer], DERRICK T 486 PNEUMONIA UNSPECIFIED 05/30/2012 DILLON DO, MICHELLE K 486 PNEUMONIA UNSPECIFIED 05/30/2012 KYAW WASHINGTON MD 486 PNEUMONIA UNSPECIFIED 05/30/2012 BERT [employer], DERRICK T 486 PNEUMONIA UNSPECIFIED 05/30/2012 BERT [employer]PORATE DIRECT[employer], DERRICK T 486 PNEUMONIA UNSPECIFIED 05/30/2012 BERT [employer]PORATE DIRECT[employer], DERRICK T 486 PNEUMONIA UNSPECIFIED 05/30/2012 NORIEGA DDS, CHERI 486 PNEUMONIA UNSPECIFIED 05/30/2012 BLESSING [employer]PORATE DIRECT[employer], OLIVERIO R 486 PNEUMONIA UNSPECIFIED 05/30/2012 BLESSING [employer]PORATE DIRECTOR OF [employer]OURCES, OLIVERIO R 486 PNEUMONIA UNSPECIFIED 05/30/2012 BERT [employer]PORATE DIRECT[employer], DERRICK T 486 PNEUMONIA UNSPECIFIED 05/30/2012 DILLON DO, MICHELLE K 486 PNEUMONIA UNSPECIFIED 05/30/2012 BERT [employer]PORATE DIRECT[employer], DERRICK T 486 PNEUMONIA UNSPECIFIED 05/30/2012 BERT [employer]PORATE DIRECT[employer], DERRICK T 486 PNEUMONIA UNSPECIFIED 05/30/2012 BERT [employer]PORATE DIRECT[employer], DERRICK T 486 PNEUMONIA UNSPECIFIED 05/30/2012 BERT [employer]ATE DIRECT[employer], DERRICK T 486 PNEUMONIA UNSPECIFIED 08/27/2012 DILLON DO, MICHELLE K 959.01 OTHER AND UNSPECIFIED INJURY TO HEAD 08/27/2012 DILLON DO, MICHELLE K 959.01 OTHER AND UNSPECIFIED INJURY TO HEAD 08/27/2012 959.01 OTHER AND UNSPECIFIED INJURY TO HEAD 08/27/2012 959.01 OTHER AND UNSPECIFIED INJURY TO HEAD 08/27/2012 959.01 OTHER AND UNSPECIFIED INJURY TO HEAD 08/27/2012 959.01 OTHER AND UNSPECIFIED INJURY TO HEAD 08/27/2012 DILLON DO, MICHELLE K 959.01 OTHER AND UNSPECIFIED INJURY TO HEAD 08/27/2012 DILLON DO, MICHELLE K 959.01 OTHER AND UNSPECIFIED INJURY TO HEAD 08/27/2012 DILLON DO, MICHELLE K 959.01 OTHER AND UNSPECIFIED INJURY TO HEAD 08/27/2012 DILLON DO, MICHELLE K 959.01 OTHER AND UNSPECIFIED INJURY TO HEAD 08/27/2012 DERRICK NOEL APRN 959.01 OTHER AND UNSPECIFIED INJURY TO HEAD 08/27/2012 DERRICK NOEL APRN 959.01 OTHER AND UNSPECIFIED INJURY TO HEAD 08/27/2012 DERRICK NOEL APRN 959.01 OTHER AND UNSPECIFIED INJURY TO HEAD 08/27/2012 DERRICK NOEL APRN 959.01 OTHER AND UNSPECIFIED INJURY TO HEAD 08/27/2012 DILLON DO, MICHELLE K 959.01 OTHER AND UNSPECIFIED INJURY TO HEAD 08/27/2012 KYAW WASHINGTON MD 959.01 OTHER AND UNSPECIFIED INJURY TO HEAD 08/27/2012 DERRICK NOEL APRN 959.01 OTHER AND UNSPECIFIED INJURY TO HEAD 08/27/2012 DERRICK NOEL APRN 959.01 OTHER AND UNSPECIFIED INJURY TO HEAD 08/27/2012 DERRICK NOEL APRN 959.01 OTHER AND UNSPECIFIED INJURY TO HEAD 08/27/2012 CHERI NORIEGA DDS 959.01 OTHER AND UNSPECIFIED INJURY TO HEAD 08/27/2012 OLIVERIO FUNK APRN R 959.01 OTHER AND UNSPECIFIED INJURY TO HEAD 08/27/2012 OLIVERIO FUNK APRN R 959.01 OTHER AND UNSPECIFIED INJURY TO HEAD 08/27/2012 DERRICK NOEL APRN 959.01 OTHER AND UNSPECIFIED INJURY TO HEAD 08/27/2012 DILLON DO, MICHELLE K 959.01 OTHER AND UNSPECIFIED INJURY TO HEAD 08/27/2012 DERRICK NOEL APRN 959.01 OTHER AND UNSPECIFIED INJURY TO HEAD 08/27/2012 DERRICK NOEL APRN 959.01 OTHER AND UNSPECIFIED INJURY TO HEAD 08/27/2012 DERRICK NOEL APRN 959.01 OTHER AND UNSPECIFIED INJURY TO HEAD 08/27/2012 DERRICK NOEL APRN 959.01 OTHER AND UNSPECIFIED INJURY TO HEAD 09/10/2012 DILLON DO, MICHELLE K 466.0 BRONCHITIS, ACUTE 09/10/2012 DILLON DO, MICHELLE K 466.0 BRONCHITIS, ACUTE 09/10/2012 466.0 BRONCHITIS, ACUTE 09/10/2012 466.0 BRONCHITIS, ACUTE 09/10/2012 466.0 BRONCHITIS, ACUTE 09/10/2012 466.0 BRONCHITIS, ACUTE 09/10/2012 DILLON DO, MICHELLE K 466.0 BRONCHITIS, ACUTE 09/10/2012 DILLON DO, MICHELLE K 466.0 BRONCHITIS, ACUTE 09/10/2012 DILLON DO, MICHELLE K 466.0 BRONCHITIS, ACUTE 09/10/2012 DILLON DO, MICHELLE K 466.0 BRONCHITIS, ACUTE 09/10/2012 DERRICK NOEL APRN T 466.0 BRONCHITIS, ACUTE 09/10/2012 DERRICK NOEL APRN T 466.0 BRONCHITIS, ACUTE 09/10/2012 DERRICK NOEL APRN T 466.0 BRONCHITIS, ACUTE 09/10/2012 DERRICK NOEL APRN T 466.0 BRONCHITIS, ACUTE 09/10/2012 DILLON DO, MICHELLE K 466.0 BRONCHITIS, ACUTE 09/10/2012 KYAW WASHINGTON MD 466.0 BRONCHITIS, ACUTE 09/10/2012 DERRICK NOEL APRN T 466.0 BRONCHITIS, ACUTE 09/10/2012 DERRICK NOEL APRN T 466.0 BRONCHITIS, ACUTE 09/10/2012 DERRICK NOEL APRN T 466.0 BRONCHITIS, ACUTE 09/10/2012 LEANN IRVIN, CHERI 466.0 BRONCHITIS, ACUTE 09/10/2012 OLIVERIO FUNK APRN R 466.0 BRONCHITIS, ACUTE 09/10/2012 BLESSING LAKHANI OLIVERIO R 466.0 BRONCHITIS, ACUTE 09/10/2012 DERRICK NOEL APRN T 466.0 BRONCHITIS, ACUTE 09/10/2012 DILLON DO, MICHELLE K 466.0 BRONCHITIS, ACUTE 09/10/2012 DERRICK NOEL APRN T 466.0 BRONCHITIS, ACUTE 09/10/2012 DERRICK NOEL APRN T 466.0 BRONCHITIS, ACUTE 09/10/2012 BERT LAKHANI DRERICK T 466.0 BRONCHITIS, ACUTE 09/10/2012 DERRICK NOEL APRN T 466.0 BRONCHITIS, ACUTE 09/10/2013 DILLON DO, MICHELLE K V04.81 FLU SHOT 09/10/2013 DILLON DO, MICHELLE K V04.81 FLU SHOT 09/10/2013 DILLON DO, MICHELLE K V04.81 FLU SHOT 09/10/2013 DERRICK NOEL APRN T V04.81 FLU SHOT 09/10/2013 DERRICK NOEL APRN T V04.81 FLU SHOT 09/10/2013 DERRICK NOEL APRN T V04.81 FLU SHOT 09/10/2013 DERRICK NOEL APRN T V04.81 FLU SHOT 09/10/2013 DILLON DO, MICHELLE K V04.81 FLU SHOT 09/10/2013 KYAW WASHINGTON MD V04.81 FLU SHOT 09/10/2013 DERRICK NOEL APRN V04.81 FLU SHOT 09/10/2013 DERRICK NOEL APRN V04.81 FLU SHOT 09/10/2013 DERRICK NOEL APRN V04.81 FLU SHOT 09/10/2013 LEANN IRVIN CHERI V04.81 FLU SHOT 09/10/2013 OLIVERIO FUNK APRN R V04.81 FLU SHOT 09/10/2013 BLESSING LAKHANI OLIVERIO R V04.81 FLU SHOT 09/10/2013 DERRICK NOEL APRN V04.81 FLU SHOT 09/10/2013 DILLON DO, MICHELLE K V04.81 FLU SHOT 09/10/2013 DERRICK NOEL APRN V04.81 FLU SHOT 09/10/2013 DERRICK NOEL APRN V04.81 FLU SHOT 09/10/2013 DERRICK NOEL APRN V04.81 FLU SHOT 09/10/2013 DERRICK NOEL APRN V04.81 FLU SHOT 06/07/2014 KYAW WASHINGTON MD 368.10 VISUAL DISTURBANCE UNSPECIFIED 06/07/2014 KYAW WASHINGTON MD 702.8 OTHER SPECIFIED DERMATOSES 06/07/2014 KYAW WASHINGTON MD 788.42 POLYURIA 06/07/2014 DERRICK NOEL APRN 368.10 VISUAL DISTURBANCE UNSPECIFIED 06/07/2014 DERRICK NOEL APRN 702.8 OTHER SPECIFIED DERMATOSES 06/07/2014 DERRICK NOEL APRN 788.42 POLYURIA 06/07/2014 DERRICK NOEL APRN 368.10 VISUAL DISTURBANCE UNSPECIFIED 06/07/2014 DERRICK NOEL APRN 702.8 OTHER SPECIFIED DERMATOSES 06/07/2014 DERRICK NOEL APRN 788.42 POLYURIA 06/07/2014 DERRICK NOEL APRN 368.10 VISUAL DISTURBANCE UNSPECIFIED 06/07/2014 DERRICK NOEL APRN 702.8 OTHER SPECIFIED DERMATOSES 06/07/2014 DERRICK NOEL APRN 788.42 POLYURIA 06/07/2014 NORIEGA DDS, CHERI 368.10 VISUAL DISTURBANCE UNSPECIFIED 06/07/2014 NORIEGA DDS, CHERI 702.8 OTHER SPECIFIED DERMATOSES 06/07/2014 NORIEGA DDS, CHERI 788.42 POLYURIA 06/07/2014 BLESSING LAKHANI OLIVERIO R 368.10 VISUAL DISTURBANCE UNSPECIFIED 06/07/2014 BLESSING LAKHANI OLIVERIO R 702.8 OTHER SPECIFIED DERMATOSES 06/07/2014 BLESSING LAKHANI OLIVERIO R 788.42 POLYURIA 06/07/2014 ZIYAD FUNK APRNRICIA R 368.10 VISUAL DISTURBANCE UNSPECIFIED 06/07/2014 BLESSING LAKHANI OLIVERIO R 702.8 OTHER SPECIFIED DERMATOSES 06/07/2014 BLESSING LAKHANI OLIVERIO R 788.42 POLYURIA 06/07/2014 DERRICK NOEL APRN 368.10 VISUAL DISTURBANCE UNSPECIFIED 06/07/2014 DERRICK NOEL APRN 702.8 OTHER SPECIFIED DERMATOSES 06/07/2014 DERRICK NOEL APRN 788.42 POLYURIA 06/07/2014 DILLON DO, MICHELLE K 368.10 VISUAL DISTURBANCE UNSPECIFIED 06/07/2014 DILLON DO, MICHELLE K 702.8 OTHER SPECIFIED DERMATOSES 06/07/2014 DILLON DO, MICHELLE K 788.42 POLYURIA 06/07/2014 DERRICK NOEL APRN 368.10 VISUAL DISTURBANCE UNSPECIFIED 06/07/2014 DERRICK NOEL APRN 702.8 OTHER SPECIFIED DERMATOSES 06/07/2014 DERRICK NOEL APRN 788.42 POLYURIA 06/07/2014 DERRICK NOEL APRN 368.10 VISUAL DISTURBANCE UNSPECIFIED 06/07/2014 DERRICK NOEL APRN 702.8 OTHER SPECIFIED DERMATOSES 06/07/2014 DERRICK NOEL APRN 788.42 POLYURIA 06/07/2014 DERRICK NOEL APRN 368.10 VISUAL DISTURBANCE UNSPECIFIED 06/07/2014 DERRICK NOEL APRN 702.8 OTHER SPECIFIED DERMATOSES 06/07/2014 DERRICK NOEL APRN 788.42 POLYURIA 06/07/2014 DERRICK NOEL APRN 368.10 VISUAL DISTURBANCE UNSPECIFIED 06/07/2014 DERRICK NOEL APRN 702.8 OTHER SPECIFIED DERMATOSES 06/07/2014 DERRICK NOEL APRN 788.42 POLYURIA 07/03/2014 DERRICK NOEL APRN 381.81 EUSTACHIAN TUBE DYSFUNCTION 07/03/2014 DERRICK NOEL APRN 381.81 EUSTACHIAN TUBE DYSFUNCTION 07/03/2014 NORIEGA DDS, CHERI 381.81 EUSTACHIAN TUBE DYSFUNCTION 07/03/2014 OLIVERIO FUNK APRN R 381.81 EUSTACHIAN TUBE DYSFUNCTION 07/03/2014 OLIVERIO FUNK APRN R 381.81 EUSTACHIAN TUBE DYSFUNCTION 07/03/2014 DERRICK NOEL APRN 381.81 EUSTACHIAN TUBE DYSFUNCTION 07/03/2014 AAKASH DILLON DOA K 381.81 EUSTACHIAN TUBE DYSFUNCTION 07/03/2014 DERRICK NOEL APRN 381.81 EUSTACHIAN TUBE DYSFUNCTION 07/03/2014 DERRICK NOEL APRN 381.81 EUSTACHIAN TUBE DYSFUNCTION 07/03/2014 DERRICK NOEL APRN 381.81 EUSTACHIAN TUBE DYSFUNCTION 07/03/2014 DERRICK NOEL APRN 381.81 EUSTACHIAN TUBE DYSFUNCTION 07/20/2014 DERRICK NOEL APRN 274.9 GOUT 07/20/2014 DERRICK NOEL APRN 381.10 OTITIS MEDIA CHRONIC SEROUS 07/20/2014 NORIEGA DDS, CHERI 274.9 GOUT 07/20/2014 NORIEGA DDS, CHERI 381.10 OTITIS MEDIA CHRONIC SEROUS 07/20/2014 OLIVERIO FUNK APRN R 274.9 GOUT 07/20/2014 NGHIA FUNK APRNIA R 381.10 OTITIS MEDIA CHRONIC SEROUS 07/20/2014 NGHIA FUNK APRNIA R 274.9 GOUT 07/20/2014 NGHIA FUNK APRNIA R 381.10 OTITIS MEDIA CHRONIC SEROUS 07/20/2014 DERRICK NOEL APRN 274.9 GOUT 07/20/2014 DERRICK NOEL APRN 381.10 OTITIS MEDIA CHRONIC SEROUS 07/20/2014 DILLON DO, MICHELLE K 274.9 GOUT 07/20/2014 DILLON DO, MICHELLE K 381.10 OTITIS MEDIA CHRONIC SEROUS 07/20/2014 DERRICK NOEL APRN 274.9 GOUT 07/20/2014 BERT MEDRANON, DERRICK T 381.10 OTITIS MEDIA CHRONIC SEROUS 07/20/2014 BERT MEDRANON, DERRICK T 274.9 GOUT 07/20/2014 BERT MEDRANON, DERRICK T 381.10 OTITIS MEDIA CHRONIC SEROUS 07/20/2014 BERT CORPORATE DIRECTOR OF HUMAN RESOURCES, DERRICK T 274.9 GOUT 07/20/2014 BERT CORPORATE DIRECTOR OF HUMAN RESOURCES, DERRICK T 381.10 OTITIS MEDIA CHRONIC SEROUS 07/20/2014 BERT MEDRANON, DERRICK T 274.9 GOUT 07/20/2014 BERT MEDRANON, DERRICK T 381.10 OTITIS MEDIA CHRONIC SEROUS 11/08/2014 BLESSING CORPORATE DIRECTOR OF HUMAN RESOURCES, OLIVERIO R 786.07 WHEEZING 11/08/2014 BLESSING CORPORATE DIRECTOR OF HUMAN RESOURCES, OLIVERIO R 786.2 COUGH 11/08/2014 BLESSING MEDRANON, OLIVERIO R 786.07 WHEEZING 11/08/2014 BLESSING MEDRANON, OLIVERIO R 786.2 COUGH 11/08/2014 DERRICK NOEL APRN T 786.07 WHEEZING 11/08/2014 DERRICK NOEL APRN T 786.2 COUGH 11/08/2014 DILLON DO, MICHELLE K 786.07 WHEEZING 11/08/2014 DILLON DO, MICHELLE K 786.2 COUGH 11/08/2014 BERT LAKHANI, DERRICK T 786.07 WHEEZING 11/08/2014 BERT LAKHANI, DERRICK T 786.2 COUGH 11/08/2014 BERT LAKHANI, DERRICK T 786.07 WHEEZING 11/08/2014 BERT MEDRANON, DERRICK T 786.2 COUGH 11/08/2014 DERRICK NOEL APRN T 786.07 WHEEZING 11/08/2014 DERRICK NOEL APRN T 786.2 COUGH 11/08/2014 BERT LAKHANI, DERRICK T 786.07 WHEEZING 11/08/2014 DERRICK NOEL APRN T 786.2 COUGH 12/11/2014 DERRICK NOEL APRN T 466.0 BRONCHITIS, ACUTE 12/11/2014 DILLON DO, MICHELLE K 466.0 BRONCHITIS, ACUTE 12/11/2014 DERRICK NOEL APRN 466.0 BRONCHITIS, ACUTE 12/11/2014 DERRICK NOEL APRN 466.0 BRONCHITIS, ACUTE 12/11/2014 DERRICK NOEL APRN 466.0 BRONCHITIS, ACUTE 12/11/2014 DERRICK NOEL APRN 466.0 BRONCHITIS, ACUTE 12/23/2014 DERRICK NOEL APRN 496 COPD 12/23/2014 DILLON DO, MICHELLE K 496 COPD 12/23/2014 DERRICK NOEL APRN 496 COPD 12/23/2014 DERRICK NOEL APRN 496 COPD 12/23/2014 DERRICK NOEL APRN 496 COPD 12/23/2014 DERRICK NOEL APRN 496 COPD 02/02/2015 ANGIE DOWNEY MD Ot 250.00 02/02/2015 ANGIE DOWNEY MD Ot 272.4 02/02/2015 ANGIE DOWNEY MD Ot 401.9 02/02/2015 ANGIE DOWNEY MD Ot 414.01 02/02/2015 ANGIE DOWNEY MD Ot 414.02 02/02/2015 ANGIE DOWNEY MD Ot 414.2 02/02/2015 ANGIE DOWNEY MD Ot 786.50 02/02/2015 ANGIE DOWNEY MD Ot 794.30 02/02/2015 ANGIE DOWNEY MD Ot V15.82 02/02/2015 ANGIE DOWNEY MD Ot V45.81 02/02/2015 ANGIE DOWNEY MD Ot V58.69 02/18/2015 DERRICK NOEL APRN 285.29 ANEMIA OF CHRONIC DISEASE 02/18/2015 DERRICK NOEL APRN 285.29 ANEMIA OF CHRONIC DISEASE 02/18/2015 DERRICK NOEL APRN 285.29 ANEMIA OF CHRONIC DISEASE 04/09/2015 DERRICK NOELP Ot 285.29 04/09/2015 DERRICK NOELP Ot 414.00 04/09/2015 DERRICK NOEL CHEF INSTRUCTOR Ot 491.20 04/09/2015 DERRICK NOEL CHEF INSTRUCTOR Ot 571.8 04/09/2015 DERRICK NOEL CHEF INSTRUCTOR Ot V45.81 01/21/2018 ANGIE DOWNEY MD Ot E78.2 MIXED HYPERLIPIDEMIA 01/21/2018 ANGIE DOWNEY MD Ot I10 ESSENTIAL (PRIMARY) HYPERTENSION 01/21/2018 ANGIE DOWNEY MD Ot I25.10 ATHSCL HEART DISEASE OF [place] CORONARY 01/21/2018 ANGIE DOWNEY MD Ot 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 01/21/2018 ANGIE DOWNEY MD Ot R06.02 SHORTNESS OF BREATH 01/21/2018 ANGIE DOWNEY MD Ot R07.89 OTHER CHEST PAIN 01/23/2018 ANGIE DOWNEY MD Ot E78.2 MIXED HYPERLIPIDEMIA 01/23/2018 ANGIE DOWNEY MD Ot I10 ESSENTIAL (PRIMARY) HYPERTENSION 01/23/2018 ANGIE DOWNEY MD Ot I25.10 ATHSCL HEART DISEASE OF [place] CORONARY 01/23/2018 ANGIE DOWNEY MD Ot R06.02 SHORTNESS OF BREATH 01/23/2018 ANGIE DOWNEY MD Ot R07.89 OTHER CHEST PAIN Procedures Code [place] [address] XRAY CHEST 2 VIEW 09/10/2012 83490 THERAPUTIC INJ SQ/IM 09/30/2012 13778 ROUTINE VENIPUNCTURE 02/23/2013 19836 THERAPUTIC INJ SQ/IM 02/23/2013 48890 TESTOSTERONE FREE 02/24/2013 11485 ROUTINE VENIPUNCTURE 03/09/2013 45846 MICRO ALBUMIN-IN HOUSE 03/09/2013 89521 A1C (IN-HOUSE) 03/09/2013 02948 CBC 03/09/2013 51629 LIPID PANEL 03/09/2013 10944 CMP 03/09/2013 8186268 GFR CALC (RESULT ONLY) 03/09/2013 J1070 TESTOSTERONE CYPIONAT 100 MG 06/27/2013 J1070 TESTOSTERONE CYPIONAT 100 MG 08/31/2013 59057 THERAPUTIC INJ SQ/IM 08/31/2013 G0008 FLU ADMINISTRATION ( MEDICARE ONLY) 09/10/2013 43655 THERAPUTIC INJ SQ/IM 11/18/2013 18865 THERAPUTIC INJ SQ/IM 12/18/2013 71888 ROUTINE VENIPUNCTURE 01/20/2014 89711 A1C (IN-HOUSE) 01/20/2014 28513 MICRO ALBUMIN-IN HOUSE 01/20/2014 28546 LIPID PANEL 01/20/2014 45729 CBC 01/20/2014 13866 CMP 01/20/2014 5049748 GFR CALC (RESULT ONLY) 01/20/2014 TESTFRTOT TESTOSTERONE FREE AND TOTAL MALE 01/20/2014 38764 A1C (IN-HOUSE) 01/22/2014 J1080 Depo-Testosterone 200 mg/mL Oil 01/22/2014 J1070 TESTOSTERONE CYPIONAT 100 MG 05/31/2014 09057 THERAPUTIC INJ SQ/IM 05/31/2014 23770 ROUTINE VENIPUNCTURE 06/07/2014 94165 CRYOTHERAPY OF SKIN 06/07/[address] HEAD/BRAIN W/O & W/DYE 06/07/2014 60325 PSA FREE AND TOTAL 06/07/2014 65664 CMP 06/08/2014 02915 UA LONG DIP 06/08/2014 49966 ROUTINE VENIPUNCTURE 06/10/2014 08794 UA LONG DIP 06/10/2014 0697442 GFR CALC (RESULT ONLY) 06/10/2014 75541 CMP 06/10/2014 18716 CRYOTHERAPY OF SKIN 07/20/2014 45945 XRAY FOOT LEFT 2 VIEWS 07/20/2014 37620 INFLUENZA A & B (IN-HOUSE) 11/08/2014 34258 XRAY CHEST 2 VIEW 11/08/2014 08255 THERAPUTIC INJ SQ/IM 11/10/2014 J2930 SOLUMEDROL INJ 11/10/2014 84138 OXIMETRY 11/12/2014 93667 OXIMETRY 11/13/2014 96088 ROUTINE VENIPUNCTURE 12/24/2014 68433 XRAY CHEST 2 VIEW 12/24/2014 98592 OXIMETRY 12/24/2014 29185 CBC 12/24/2014 9673478 GFR CALC (RESULT ONLY) 12/24/2014 29589 CMP 12/24/2014 73486 LIPID PANEL 12/24/2014 64076 NEBULIZER TREATMENT 01/12/2015 08901 OXIMETRY 01/12/2015 68561 THERAPUTIC INJ SQ/IM 02/11/2015 J2930 SOLUMEDROL INJ 02/11/2015 98726 XRAY CHEST 2 VIEW 02/11/2015 83743 CULTURE SPUTUM 02/11/[address] CHEST W/DYE 02/18/2015 21871 PULMONARY FUNCTION TEST (IN- HOUSE) 02/18/2015 52353 OXIMETRY 02/18/2015 12220 PULMONARY FUNCTION TEST (IN- HOUSE) 02/28/2015 67709 BRONCHODILATION PRE/POST 02/28/2015 14896 RESPIRATORY FLOW VOLUME LOOP 02/28/2015 86412 PULMONARY EDUCATION 02/28/2015 Results Test Result Range CBC With Differential/Platelet - 09/10/16 11:57 WBC 6.9 x10E3/uL 3.4-10.8 RBC 5.08 x10E6/uL 4.14-5.80 Hemoglobin 15.0 g/dL 12.6-17.7 Hematocrit 45.7 % 37.5-51.0 MCV 90 fL 79-97 MCH 29.5 pg 26.6-33.0 MCHC 32.8 g/dL 31.5-35.7 RDW 13.8 % 12.3-15.4 Platelets 209 x10E3/uL 150-379 Neutrophils 54 % Lymphs 33 % Monocytes 9 % Eos 3 % Basos 1 % Neutrophils (Absolute) 3.8 x10E3/uL 1.4-7.0 Lymphs (Absolute) 2.2 x10E3/uL 0.7-3.1 Monocytes(Absolute) 0.6 x10E3/uL 0.1-0.9 Eos (Absolute) 0.2 x10E3/uL 0.0-0.4 Baso (Absolute) 0.0 x10E3/uL 0.0-0.2 Immature Granulocytes 0 % Immature Grans (Abs) 0.0 x10E3/uL 0.0-0.1 Comp. Metabolic Panel (14) - 09/10/16 11:57 Glucose, Serum 104 mg/dL 65-99 BUN 14 mg/dL 8-27 Creatinine, Serum 0.77 mg/dL 0.76-1.27 eGFR If NonAfricn Am 91 mL/min/1.73 >59 eGFR If Africn Am 105 mL/min/1.73 >59 BUN/Creatinine Ratio 18 10-22 Sodium, Serum 143 mmol/L 136-144 Potassium, Serum 4.7 mmol/L 3.5-5.2 Chloride, Serum 100 mmol/L 97-106 Carbon Dioxide, Total 25 mmol/L 18-29 Calcium, Serum 9.3 mg/dL 8.6-10.2 Protein, Total, Serum 6.7 g/dL 6.0-8.5 Albumin, Serum 4.3 g/dL 3.5-4.8 Globulin, Total 2.4 g/dL 1.5-4.5 A/G Ratio 1.8 1.1-2.5 Bilirubin, Total 0.5 mg/dL 0.0-1.2 Alkaline Phosphatase, S 92 IU/L 39-117 AST (SGOT) 22 IU/L 0-40 ALT (SGPT) 24 IU/L 0-44 Lipid Panel - 09/10/16 11:57 Cholesterol, Total 107 mg/dL 100-199 Triglycerides 142 mg/dL 0-149 HDL Cholesterol 36 mg/dL >39 VLDL Cholesterol Corbin 28 mg/dL 5-40 LDL Cholesterol Calc 43 mg/dL 0-99 TSH - 09/10/16 11:57 TSH 2.340 uIU/mL 0.450-4.500 Comp. Metabolic Panel (14) - 04/03/17 11:13 Glucose, Serum 105 mg/dL 65-99 BUN 8 mg/dL 8-27 Creatinine, Serum 0.80 mg/dL 0.76-1.27 eGFR If NonAfricn Am 89 mL/min/1.73 >59 eGFR If Africn Am 102 mL/min/1.73 >59 BUN/Creatinine Ratio 10 10-24 Sodium, Serum 142 mmol/L 134-144 Potassium, Serum 4.6 mmol/L 3.5-5.2 Chloride, Serum 101 mmol/L 96-106 Carbon Dioxide, Total 25 mmol/L 18-29 Calcium, Serum 8.9 mg/dL 8.6-10.2 Protein, Total, Serum 7.0 g/dL 6.0-8.5 Albumin, Serum 4.6 g/dL 3.5-4.8 Globulin, Total 2.4 g/dL 1.5-4.5 A/G Ratio 1.9 1.2-2.2 Bilirubin, Total 0.5 mg/dL 0.0-1.2 Alkaline Phosphatase, S 78 IU/L 39-117 AST (SGOT) 25 IU/L 0-40 ALT (SGPT) 25 IU/L 0-44 Lipid Panel - 04/03/17 11:13 Cholesterol, Total 104 mg/dL 100-199 Triglycerides 120 mg/dL 0-149 HDL Cholesterol 40 mg/dL >39 VLDL Cholesterol Corbin 24 mg/dL 5-40 LDL Cholesterol Calc 40 mg/dL 0-99 TISSUE, 2 SPECIMENS - 10/10/17 10:34 A SOURCE NRG A GROSS DESCRIPTION NRG A DIAGNOSIS NRG A COMMENT NRG Encounters ACCT No. Visit Date/Time Discharge Status Pt. Type Provider Facility Loc./Unit Complaint [id number] 01/22/2018 07:05:00 01/22/2018 23:59:59 CLS Outpatient SHAYAN MANN, ANGIE Villasenor [facility] CARD I25.10 CAD [id number] 01/20/2018 09:21:00 01/20/2018 23:59:59 CLS Outpatient ANGIE DOWNEY MD [facility] CARD I25.10 [id number] 05/15/2017 09:15:00 05/15/2017 23:59:59 CLS Preadmit ANGIE DOWNEY MD [facility] CARD I25.10 CAD [id number] 02/24/2015 07:57:00 02/24/2015 23:59:59 CLS Outpatient DERRICK NOEL [facility] RAD [id number] 02/02/2015 06:52:00 02/02/2015 16:00:00 DIS Outpatient ANGIE DOWNEY MD [facility] [id number] 08/04/2014 07:41:00 08/04/2014 23:59:59 CLS Outpatient [id number] 08/03/2014 08:54:00 08/03/2014 23:59:59 CLS Outpatient [id number] 06/15/2014 10:41:00 06/15/2014 23:59:59 CLS Outpatient [id number] 05/31/2013 13:21:00 05/31/2013 17:28:00 DIS Emergency [id number] 02/12/2018 11:00:00 PEN Preadmit ANGIE DOWNEY MD [facility] ABN STRESS TEST,CAD [id number] 04/04/2017 08:43:00 Document Registration [id number] 09/11/2016 08:35:00 Document Registration [id number] 02/25/2015 02:32:22 ACT Document Registration [id number] 11/06/2017 10:00:00 11/06/2017 23:59:59 CLS Outpatient REGINO DIAZ APRN [facility] [id number] 10/10/2017 10:00:00 Document Registration [id number] 02/28/2015 15:52:00 02/28/2015 23:59:59 CLS Outpatient DERRICK NOEL APRN [id number] 02/18/2015 16:38:00 02/18/2015 23:59:59 CLS Outpatient DERRICK NOEL APRN [id number] 02/11/2015 11:12:00 02/11/2015 23:59:59 CLS Outpatient DERRICK NOEL APRN [id number] 02/11/2015 11:12:00 02/11/2015 23:59:59 CLS Outpatient DERRICK NOEL APRN [id number] 01/12/2015 11:21:00 01/12/2015 23:59:59 CLS Outpatient MICHELLE DILLON DO Anju [id number] 12/24/2014 11:11:00 12/24/2014 23:59:59 CLS Outpatient DERRICK NOEL APRN [id number] 12/13/2014 10:46:00 12/13/2014 23:59:59 CLS Outpatient DERRICK NOEL APRN [id number] 11/12/2014 15:35:00 11/12/2014 23:59:59 CLS Outpatient OLIVERIO FUNK APRN Melany [id number] 11/08/2014 15:12:00 11/08/2014 23:59:59 CLS Outpatient OLIVERIO FUNK APRN Melany [id number] 08/10/2014 09:04:00 08/10/2014 23:59:59 CLS Outpatient NORIEGAYOANA CABANCHERI Fox [id number] 07/20/2014 13:40:00 07/20/2014 23:59:59 CLS Outpatient DERRICK NOEL APRN [id number] 07/03/2014 10:43:00 07/03/2014 23:59:59 CLS Outpatient DERRICK NOEL APRN [id number] 06/10/2014 10:31:00 06/10/2014 23:59:59 CLS Outpatient DERRICK NOEL APRN [id number] 06/07/2014 12:33:00 06/07/2014 23:59:59 CLS Outpatient KYAW WASHINGTON MD [id number] 05/31/2014 16:05:00 05/31/2014 23:59:59 CLS Outpatient SANTANA GUIDRY MICHELLE Rene [id number] 05/28/2014 15:11:00 05/28/2014 23:59:59 CLS Outpatient DERRICK NOEL APRN [id number] 01/22/2014 14:36:00 01/22/2014 23:59:59 CLS Outpatient DERRICK NOEL APRN [id number] 01/20/2014 10:20:00 01/20/2014 23:59:59 CLS Outpatient DERRICK NOEL APRN [id number] 12/26/2013 11:11:00 12/26/2013 23:59:59 CLS Outpatient DERRICK NOEL APRN [id number] 12/18/2013 13:29:00 12/18/2013 23:59:59 CLS Outpatient DILLON MICHELLE [id number] 11/18/2013 11:32:00 11/18/2013 23:59:59 CLS Outpatient SANTANA GUIDRYMICHELLE [id number] 09/10/2013 16:01:00 09/10/2013 23:59:59 CLS Outpatient SANTANA MICHELLE [id number] 08/31/2013 16:23:00 08/31/2013 23:59:59 CLS Outpatient DILLON MICHELLE [id number] 09/10/2012 14:57:00 09/10/2012 23:59:59 CLS Outpatient DILLON MICHELLE [id number] 09/10/2012 14:57:00 09/10/2012 23:59:59 CLS Outpatient MICHELLE DILLON DO [id number] 06/27/2013 10:50:00 Document Registration [id number] 06/08/2013 08:56:00 Document Registration [id number] 03/09/2013 08:48:00 Document Registration [id number] 02/23/2013 13:24:00 Document Registration
[2018-02-12] MEDS ORDERED: HEParin (CATH LAB) 2,000 ML IV ONE (09:18)
[2018-02-12] MEDS ORDERED: NS IV 1000 ML 1,000 ML ONE (09:18)
[2018-02-12] MEDS ORDERED: NS IV 1000 ML 1,000 ML IV SCH ×2 (09:25→13:27)
[2018-02-12 09:44] LABS: HEMOGLOBIN 15.8 G/DL (13.3-17.7); MEAN PLATELET VOLUME 9.3 FL (7.4-10.4); RED BLOOD COUNT 5.17 10^6/uL (4.35-5.85); RED CELL DISTRIBUTION WIDTH 13.1 % (10.0-14.5); WHITE BLOOD COUNT 7.7 10^3/uL (4.3-11.0)
[2018-02-12] MEDS ORDERED: RECEIVED CONTRAST (Hold Metformin) IV SCH (10:00)
[2018-02-12 10:01] LABS: PROTHROMBIN TIME PATIENT 13.3 SEC (12.2-14.7)
[2018-02-12 10:08] LABS: ALANINE AMINOTRANSFERASE 24 U/L (0-55); ALBUMIN 4.7 GM/DL (3.2-4.5); ALKALINE PHOSPHATASE 86 U/L (40-136); BILIRUBIN,TOTAL 0.4 MG/DL (0.1-1.0); BUN/CREATININE RATIO 21; CALCIUM 9.3 MG/DL (8.5-10.1); CARBON DIOXIDE 31 MMOL/L (21-32); CHLORIDE 105 MMOL/L (98-107); CHOLESTEROL 109 MG/DL (< 200); GFR ESTIMATED > 60; GLUCOSE 113 MG/DL (70-105); HDL CHOLESTEROL 41 MG/DL (40-60); POTASSIUM 4.2 MMOL/L (3.6-5.0); SODIUM 142 MMOL/L (135-145); TOTAL PROTEIN 7.7 GM/DL (6.4-8.2); TRIGLYCERIDES 87 MG/DL (<150); VLDL CHOLESTEROL 17 MG/DL (5-40)
[2018-02-12] MEDS ORDERED: CHOL10007 PO (10:13)
[2018-02-12] MEDS ORDERED: IRBE150T26 PO (10:13)
[2018-02-12] MEDS ORDERED: CARV6.252 PO (10:13)
[2018-02-12] MEDS ORDERED: ASCO10006 PO (10:13)
[2018-02-12] MEDS ORDERED: ASPI325T32 PO (10:13)
[2018-02-12] MEDS ORDERED: VENL150C98 PO (10:13)
[2018-02-12] MEDS ORDERED: METF500T4 PO (10:13)
[2018-02-12] MEDS ORDERED: CA C1TAB70 PO (10:13)
[2018-02-12] MEDS ORDERED: SIMV20TA3 PO (10:13)
--- NOTE | 2018-02-12 10:14 | Diagnostic Imaging Report ---
Procedure: Portable erect AP chest at 9:39. Indication: Preop heart catheterization. Findings: The heart size is within normal limits and stable when compared to 02/02/2015. The sternotomy wires and surgical clips are again evident and no different. The prior exam also revealed coarse interstitial densities along the periphery of the left mid lung and left lung base and there was blunting of the left costophrenic angle. Those findings are again evident on this study and essentially no different. Consequently I do feel that they are chronic in nature. There is no sign of failure, pneumonia or pleural effusion to indicate an acute abnormality. The mediastinum is not widened. The osseous structures are intact Impression: 1. There is evidence of prior cardiac surgery and chronic pulmonary disease involving the left mid lung and left lung base. 2. There is no sign of an acute cardiopulmonary abnormality however. Dictated by: Dictated on workstation # [id number]
[2018-02-12] MEDS ORDERED: BIOF1TAB6 PO (10:15)
[2018-02-12] MEDS ORDERED: TADA20TA PO (10:16)
[2018-02-12] MEDS ORDERED: MIDAZOLAM 5 MG/5 ML (VERSED) VIAL ONE (12:08)
[2018-02-12] MEDS ORDERED: fentaNYL INJECTION 100 MCG/2 ML AMP ONE (12:08)
[2018-02-12] MEDS ORDERED: LIDOCAINE 1% INJ 50 ML (XYLOCAINE) VIAL ONE (12:13)
--- NOTE | 2018-02-12 12:57 | Cardiac Procedure Note-CS/ASA ---
Pre-Procedure Note Pre-Op Procedure Note H&P Reviewed The H&P was reviewed, patient examined and no changes noted. Date H&P Reviewed: Feb 12, 2018 Time H&P Reviewed: 12:57 Conscious Sedation Pre-Proced Time Reviewed: 12:57 ASA Class: 3 Airway Mallampati Classification: (huslia appropriate class) I. II. III, IV Lungs Heart ASA score ASA 1: a normal healthy patient ASA 2: a patient with a mild systemic disease (mid diabetes, controlled hypertension, obesity x ASA 3: a patient with a severe systemic disease that limits activity (angina , COPD, prior Myocardial infarction) ASA 4: a patient with an incapacitating disease that is a constant threat to life (CHF, renal failure) ASA 5: a moribund patient not expected to survive 24 hrs. (ruptured aneurysm) ASA 6: a declared brain patient whose organs are being harvested. For emergent operations, add the letter E after the classification Grade 3 Sedation Plan: Analgesia, Amnesia, Plan communicated to team members, Discussed options with patient/fam, Discussed risks with patient/fam Note The patient is an appropriate candidate to undergo the planned procedure, sedation, and anesthesia. The patient immediately re-assessed prior to indication. ANGIE DOWNEY MD Feb 12, 2018 12:57
[2018-02-12] MEDS ORDERED: PATIENT MAY USE OWN MEDS, ALL PO SCH (13:30)
--- NOTE | 2018-02-12 13:31 | Discharge Inst-Post CATH ---
Discharge Inst-CATH Post Cardiac Cath D/C Inst Follow Up/Plan Hold metformin for [address] Wadsworth's office in 2-4 weeks CARDIAC CATH DISCHARGE INSTRUCTIONS *Hold Metformin for 48 hours post heart cath. ACTIVITY * Go Home directly and rest. * Limit activity of the leg (or wrist if it was used) for 7 days including aerobics, swimming, jogging, bicycling, etc. * Restrict stair-climbing for 7 days if possible, if not, climb up with your non -cath leg, then bring together on the same step. * Avoid lifting, pushing, pulling or excessive movement of the affected extremity for 7 days. * Customary sexual activity may be resumed after 2 days-use caution not to use a position that strains or causes pain to the affected extremity. * No driving for 24 hours. * NO SMOKING. * Avoid straining for bowel movements for 7 days. * Gentle walking on level ground is allowed. * Returning to work will depend on the type of procedure and the results. Your doctor will discuss this with you. CALL YOUR DOCTOR FOR ANY OF THE FOLLOWING: *If bleeding from the puncture site occurs- Apply gentle pressure to site with clean cloth and call your doctor or EMS. * If a knot or lump forms under the skin, increases in size, or causes pain. * If bruising appears to be worsening or moving further down your leg instead of disappearing. * Temperature above 101 F. CARE OF YOUR GROIN INCISION; * Bruising or purple discoloration of the skin near the puncture site is common. * You may shower only, no bathtub bathing for 5 days. Be careful to avoid slipping as your leg may feel stiff. * If a closure device was used on your femoral artery, please see the attached guide regarding care of the device and your leg. * REMOVE the dressing from your groin the next day after your procedure in the shower. CARE OF YOUR WRIST INCISION; * Bruising or purple discoloration of the skin near the puncture site is common. * You may shower. * DO NOT submerge wrist. * Remove dressing in 24 hours. ANGIE WADSWORTH MD Feb 12, 2018 13:31
--- NOTE | 2018-02-12 13:38 | Cardiac Cath Report ---
Cardiac Cath Report Physician (s)/Coil Shaper (s) Physician ANGIE DOWNEY MD Pre-Procedure Diagnosis Pre-Procedure Diagnosis: Coronary artery disease Post-Procedure Note Procedure Start Date: Feb 12, 2018 Name of Procedure: Left heart catheterization Vein graft angiogram Internal mammary artery angiogram The aortogram with bilateral lower Extremities Runoff Findings/Procedure Note PROCEDURE NOTE: After explaining the procedure to the patient, all pros and cons were explained , all questions were answered. The patient signed the consent and then he was placed on the cardiac catheterization laboratory. Groin was prepped SL fashion local anesthesia was used. Sheath placed in the artery. Frandy right and left catheter were used to access the coronary system.Vein Graft evaluated. GRAVES evaluated. Pigtail was used to access the left ventricular cavity. Left ventriculogram was not done, pressure was measured Aortic evaluation with abdominal aortogram and bilateral lower except he ran off , it was done due to the fact that patient has lower extremities pain and appeared to have atherosclerotic plaques in the iliac arteries upon evaluating the sheath physician At the end of the procedure the sheath was removed. Closure device was used FINDINGS: Hemodynamics LV 112/13, end-diastolic pressure of 13 Aorta 132/65 mean of 93 ANATOMY: Left Main has severe disease Left Anterior Descending has severe disease proximally, patent GRAVES to LAD Left Circumflex has severe disease proximally, vein graft to the obtuse marginal branch is patent, the proper circumflex artery is getting filled by collaterals from the right coronary artery Right Coronory Artery is occluded with patent vein graft to the right coronary artery GRAVES to LAD is patent with good flow distally Vein Graft to the diagonal artery is patent with excellent flow Vein graft to the obtuse marginal branch is patent with good flow in the obtuse marginal branch system Vein graft to the right coronary artery is patent with excellent flow in the right coronary artery that is filling the proper circumflex artery through collaterals LV Gram was not done pressure was measured Aorta evaluation done with abdominal aortogram and bilateral runoff showing diffuse atherosclerotic disease down to the knee, at the trifurcation the right side appeared to have mild disease, the left side was not well visualized CONCLUSION: 1. Patent bypass grafts including GRAVES to LAD, vein graft to diagonal, vein graft to obtuse marginal and vein graft to the right coronary artery was small vessel disease distally, the proper circumflex artery is occluded getting collateral from the right system 2. Atherosclerotic disease in the abdominal aorta and lower extremities, nonobstructive disease 3. Normal left ventricular end-diastolic pressure DISCUSSION AND RECOMMENDATION: Medical therapy is recommended no intervention is needed Anesthesia Type: Conscious Sedation Estimated blood loss (mL): 10 ml Contrast Amount: 110 ml Total Radiation Dose: 634 mGy Post-Procedure Diagnosis Post-operative diagnosis: Coronary artery disease Peripheral arterial disease Hypertension Hyperlipidemia Diabetes mellitus ANGIE DOWNEY MD Feb 12, 2018 13:38
== END 2018-02-12 18:30 | disposition home or self-care (01) ==
LOC: CATH 08:46 → SURG 13:51 → CATH 18:30
PROVIDERS: ATTEND Internal Medicine Cardiovascular Disease
DX: I25.10 Atherosclerotic heart disease of native coronary artery without angina pectoris (principal); I73.9 Peripheral vascular disease, unspecified; I10 Essential (primary) hypertension; E78.2 Mixed hyperlipidemia; E11.51 Type 2 diabetes mellitus with diabetic peripheral angiopathy without gangrene; Z95.1 Presence of aortocoronary bypass graft; I65.23 Occlusion and stenosis of bilateral carotid arteries
CPT/HCPCS: 36415; 71045; 75630; 80053; 80061; 85027; 85610; 85730; 87081; 93459

== ENCOUNTER 2018-09-27 19:52 | Outpatient (CLI) | payer MEDICARE, OTHER ==
[~2018-09-27 19:52] MED LIST changes: +ASCO10006 PO; +ASPI325T32 PO; +BIOF1TAB6 PO; +CA C1TAB70 PO; +CARV6.252 PO; +CHOL10007 PO; +IRBE150T26 PO; +METF-397 PO; +SIMV20TA3 PO; +VENL150C98 PO
== END 2018-09-28 06:15 | disposition home or self-care (01) ==
LOC: SLEEP 19:52
PROVIDERS: ATTEND Nurse Practitioner Community Health
DX: G47.33 Obstructive sleep apnea (adult) (pediatric) (principal); R06.83 Snoring
CPT/HCPCS: 95810

== ENCOUNTER 2019-06-10 05:37 | Outpatient (CLI) | payer MEDICARE, OTHER ==
[~2019-06-10] VITALS: Ht 175.3 cm; Wt 88.9 kg
[2019-06-10] MEDS ORDERED: MULT-178 PO (13:26)
[2019-06-10] MEDS ORDERED: METF-397 PO (13:26)
== END 2019-06-10 13:32 | disposition home or self-care (01) ==
LOC: PREOP 05:37
PROVIDERS: ATTEND Specialist
DX: Z01.818 Encounter for other preprocedural examination (principal)

== ENCOUNTER 2019-06-12 09:28 | Day surgery (SDC) | payer MEDICARE, OTHER ==
[~2019-06-12] VITALS: Ht 175.3 cm; Wt 88.9 kg
[~2019-06-12 09:28] MED LIST changes: +MULT-178 PO
[2019-06-12 09:35] VITALS: BP 146/91
[2019-06-12] MEDS ORDERED: POVIDONE (BETADINE) OPHTH SOLN 5% 30 ML OP ONE (09:45)
[2019-06-12] MEDS ORDERED: TIMOLOL MALEATE 0.5% 5 ML (TIMOPTIC) BTL OU PRN (09:45)
[2019-06-12] MEDS ORDERED: LIDOCAINE PF 1% 2 ML AMP IR PRN (09:45)
[2019-06-12] MEDS: TETRACAINE 0.5% OPHTH SOLN 4 ML BTL (SINGLE DOSE ONLY) OU PRN ×4 (09:46→10:06)
[2019-06-12] MEDS: CYCLOPENTOLATE 1% (CYCLOGYL) 2 ML DROPS OP SCH ×3 (09:55→10:06)
[2019-06-12] MEDS: PHENYLEPHRINE 10% OPHTH (NEO-SYN) 5 ML BTL OU SCH ×3 (09:55→10:06)
--- NOTE | 2019-06-12 10:28 | Ophthalmologist Pre-Op Note ---
Pre-Operative Progress Note H&P Reviewed The H&P was reviewed, patient examined and no changes noted. Date H&P Reviewed: Jun 12, 2019 Time H&P Reviewed: 10:28 Pre-Op Dx Cataract, Left Eye ZHUO RUSHING MD Jun 12, 2019 10:28
[2019-06-12] MEDS ORDERED: MIDAZOLAM 2 MG/2 ML (VERSED) VIAL ONE (10:29)
--- NOTE | 2019-06-12 10:52 | Ophthalmology Operative Report ---
Cataract removal/placement IOL PREOPERATIVE DIAGNOSIS: Cataract Left Eye POSTOPERATIVE DIAGNOSIS: Cataract Left Eye PROCEDURE: Cataract removal and placement of posterior chamber implant, left eye SURGEON: Philip Rushing ANESTHESIA: Topical with sedation COMPLICATIONS: None ESTIMATED BLOOD LOSS: Minimal DESCRIPTION OF PROCEDURE: After proper informed consent was obtained, the patient, a 74 male, was taken to the Operating Room and the left eye was anesthetized with tetracaine. The left eye was then prepped and draped in the usual manner. A wire lid speculum was placed. A paracentesis was made at the left hand position. Preservative free lidocaine was injected into the anterior chamber followed by viscoelastic. A clear corneal incision was made in the temporal position. A capsulorrhexis was preformed and the central nuclear and cortical material were removed. The posterior capsule was polished and an Landen 20.0 [id number] was placed into the capsular bag. The residual viscoelastic was aspirated and balanced saline solution was injected into the anterior chamber. The wound was checked and found to be water tight. The patient tolerated the procedure well without complications. PHILIP RUSHING MD Jun 12, 2019 10:52
--- NOTE | 2019-06-12 10:59 | Anesthesia-General Post-Op ---
MAC Patient Condition Mental Status/LOC: Same as Preop Cardiovascular: Satisfactory Nausea/Vomiting: Absent Respiratory: Satisfactory Pain: Controlled Complications: Absent Post Op Complications Complications None Follow Up Care/Instructions Patient Instructions None needed. Anesthesiology Discharge Order Discharge Order Patient is doing well, no complaints, stable vital signs, no apparent adverse anesthesia problems. No complications reported per nursing. YOLANDE RAMOS CRNA Jun 12, 2019 10:59
[2019-06-12 11:02] VITALS: BP 154/87
[2019-06-12] MEDS ORDERED: acetaZOLAMIDE ER 500 MG CAP (DIAMOX SEQUELS) PO ONE (11:30)
== END 2019-06-12 11:02 | disposition home or self-care (01) ==
LOC: SDC 09:28
PROVIDERS: ATTEND Specialist
DX: H25.12 Age-related nuclear cataract, left eye (principal); I10 Essential (primary) hypertension; E11.9 Type 2 diabetes mellitus without complications; Z95.1 Presence of aortocoronary bypass graft; Z87.891 Personal history of nicotine dependence; Z79.84 Long term (current) use of oral hypoglycemic drugs; Z79.899 Other long term (current) drug therapy; Z85.828 Personal history of other malignant neoplasm of skin; Z88.5 Allergy status to narcotic agent; Z88.1 Allergy status to other antibiotic agents

== ENCOUNTER 2022-03-07 10:19 | Outpatient (RCR) | payer MEDICARE ==
[~2022-03-07 10:19] MED LIST changes: +ASCO100024 PO; -ASCO10006 PO; +IRBE150T23 PO; -IRBE150T26 PO; +SIMV20TA26 PO; -SIMV20TA3 PO
== END 2022-03-10 | disposition home or self-care (01) ==
PROVIDERS: ATTEND Physician Assistant Medical
DX: S83.241D Other tear of medial meniscus, current injury, right knee, subsequent encounter (principal); E11.9 Type 2 diabetes mellitus without complications; Z96.652 Presence of left artificial knee joint; Z98.890 Other specified postprocedural states; X58.XXXD Exposure to other specified factors, subsequent encounter

== ENCOUNTER 2022-03-14 11:01 | Outpatient (RCR) | payer MEDICARE | END 2022-04-10 | disposition home or self-care (01) | PROVIDERS: ATTEND Physician Assistant Medical | DX: S83.241A Other tear of medial meniscus, current injury, right knee, initial encounter (principal); E11.9 Type 2 diabetes mellitus without complications; X58.XXXA Exposure to other specified factors, initial encounter | CPT/HCPCS: 97110; G0283 ==

== ENCOUNTER → 2022-08-22 | Outpatient (CLI) | payer MEDICARE | LOC: CARD 08:49 | PROVIDERS: ATTEND Physician Assistant | DX: I11.9 Hypertensive heart disease without heart failure (principal); I25.10 Atherosclerotic heart disease of native coronary artery without angina pectoris | CPT/HCPCS: 93306 ==